=== PATIENT | female | born 1965 | race Caucasian/White ===

== ENCOUNTER 2016-05-23 23:30 | Inpatient (IN) | payer OTHER ==
[~2016-05-23] VITALS: Ht 167.6 cm; Wt 72.0 kg
[2016-05-23 23:32] VITALS: BP 146/71; PULSE 88; RESP 20; TEMP 98.2; O2SAT 98
[2016-05-24] VITALS (8 sets, daily range): BP systolic 118–138; BP diastolic 62–72; PULSE 60–79; RESP 16–20; TEMP 96.7–97.6; O2SAT 96–99
[2016-05-24] MEDS ORDERED: SODIUM CHLOR 0.9% 1000 ML INJ 1,000 ML IV SCH ×2 (01:50→04:03)
--- NOTE | 2016-05-24 01:55 | PD ---
HPI Chief Complaint: Abdominal Pain Time Seen by Provider: 01:39 Travel History International Travel<30 days: No Contact w/Intl Traveler<30days: No Traveled to known affect area: No History of Present Illness HPI The patient is a 50-year-old female who presents to the emergency department for abdominal pain. The patient states she developed abdominal pain on Saturday which is located in epigastrium periumbilical area, radiates to the back into the left shoulder. The pain is associated with nausea and vomiting, initially described as clear now, described as yellow in nature. She states her last bowel movement was on Saturday, denies any diarrhea. The patient does have a history of tubal ligation. The patient is unsure if she has any history of gallstones, pancreatitis, or biliary colic. The patient denies any fever, chills, or sweats. The patient moved from [place] one and a half years ago and does not have a local primary physician. The patient's symptoms are moderate, there are no known alleviating or exacerbating factors. PFSH Past Medical History Medical History: Denies Significant Hx ?: Not LMP: TUBAL Past Surgical History Narrative Surgical Tubal ligation Social History Alcohol Use: Yes (social alcohol) Tobacco Use: No (quit 2015) Substance Use: No Allergies-Medications (Allergen,Severity, Reaction): Coded Allergies: No Known Allergies (Unverified , 05/23/16) Review of Systems Except as stated in HPI: all other systems reviewed are Neg General / Constitutional: No: Fever Cardiovascular: No: Chest Pain or Discomfort Respiratory: No: Shortness of Breath Gastrointestinal: Positive: Nausea, Vomiting, Abdominal Pain, Changes in Bowel Habits, No: Diarrhea Genitourinary: No: Dysuria Musculoskeletal: No: Weakness Physical Exam Narrative GENERAL: Awake, alert, nontoxic-appearing 50-year-old female who appears her stated age and is in no acute respiratory distress. SKIN: Warm and dry. HEAD: Atraumatic. Normocephalic. EYES: Pupils equal and round. No scleral icterus. No injection or drainage. ENT: No nasal bleeding or discharge. Mucous membranes pink and moist. NECK: Trachea midline. No JVD. CARDIOVASCULAR: Regular rate and rhythm. No murmur appreciated. RESPIRATORY: No accessory muscle use. Clear to auscultation. Breath sounds equal bilaterally. GASTROINTESTINAL: Abdomen soft, mildly distended, tender in epigastrium. No rebound tenderness. Mild guarding. No rigidity. MUSCULOSKELETAL: No obvious deformities. No clubbing. No cyanosis. No edema. NEUROLOGICAL: Awake and alert. No obvious cranial nerve deficits. Motor grossly within normal limits. Normal speech. PSYCHIATRIC: Appropriate mood and affect; insight and judgment normal. Data Data Last Documented VS Vital Signs Date Time Temp Pulse Resp B/P Pulse Ox O2 Delivery O2 Flow Rate FiO2 05/24/16 02:09 99 Room Air 05/23/16 23:32 98.2 88 20 146/71 Orders Complete Blood Count With Diff (05/24/16 01:50) Comprehensive Metabolic Panel (05/24/16 01:50) Lipase (05/24/16 01:50) Urinalysis - C+S If Indicated (05/24/16 01:50) Ct Abd/Pel W/O Iv Contrast (05/24/16 01:50) Iv Access Insert/Monitor (05/24/16 01:50) Ecg Monitoring (05/24/16 01:50) Oximetry (05/24/16 01:50) Morphine Inj (Morphine Inj) (05/24/16 02:00) Ondansetron Inj (Zofran Inj) (05/24/16 02:00) Sodium Chlor 0.9% 1000 Ml Inj (Ns 1000 M (05/24/16 01:50) Sodium Chloride 0.9% Flush (Ns Flush) (05/24/16 02:00) Electrocardiogram (05/24/16 01:50) Famotidine Inj (Pepcid Inj) (05/24/16 02:00) Sodium Chlor 0.9% 1000 Ml Inj (Ns 1000 M (05/24/16 03:30) Ciprofloxacin 400 Mg Premix (Cipro 400 M (05/24/16 03:30) Metronidazole 500 Mg Inj (Flagyl 500 Mg (05/24/16 03:30) Marielle-Gastric Tube Insert/Mon (05/24/16 03:40) Consult Colorectal Surgery (05/24/16 ) (Hub Use Only)Inp Phy Cons/Ref (05/24/16 ) Admit To Inpatient (05/24/16 ) Vital Signs (Adult) Q4H (05/24/16 04:03) Activity Oob With Assistance (05/24/16 04:03) ^ Principal Cyber Engineer / Telemetry .CONTINUOUS (05/24/16 04:03) Diet Npo (05/24/16 Breakfast) Sodium Chlor 0.9% 1000 Ml Inj (Ns 1000 M (05/24/16 04:03) Sodium Chloride 0.9% Flush (Ns Flush) (05/24/16 04:15) Sodium Chloride 0.9% Flush (Ns Flush) (05/24/16 09:00) Ondansetron Inj (Zofran Inj) (05/24/16 04:15) Basic Metabolic Panel (Bmp) (05/25/16 06:00) Complete Blood Count With Diff (05/25/16 06:00) Case Management Consult (05/24/16 04:03) Scd Bilateral/Knee High WARREN.BID (05/24/16 04:03) Naloxone Inj (Narcan Inj) (05/24/16 04:15) Inpatient Certification (05/24/16 ) Morphine Inj (Morphine Inj) (05/24/16 04:15) Ciprofloxacin 400 Mg Premix (Cipro 400 M (05/24/16 15:00) Metronidazole 500 Mg Inj (Flagyl 500 Mg (05/24/16 09:00) Admit Order (Ed Use Only) (05/24/16 04:06) Labs Laboratory Tests Test 05/24/16 02:25 White Blood Count 28.0 TH/MM3 Red Blood Count 4.55 MIL/MM3 Hemoglobin 11.8 GM/DL Hematocrit 36.2 % Mean Corpuscular Volume 79.6 FL Mean Corpuscular Hemoglobin 26.0 PG Mean Corpuscular Hemoglobin 32.6 % Concent Red Cell Distribution Width 16.9 % Platelet Count 395 TH/MM3 Mean Platelet Volume 8.9 FL Neutrophils (%) (Auto) 87.4 % Lymphocytes (%) (Auto) 3.8 % Monocytes (%) (Auto) 8.5 % Eosinophils (%) (Auto) 0.0 % Basophils (%) (Auto) 0.3 % Neutrophils # (Auto) 24.5 TH/MM3 Lymphocytes # (Auto) 1.1 TH/MM3 Monocytes # (Auto) 2.4 TH/MM3 Eosinophils # (Auto) 0.0 TH/MM3 Basophils # (Auto) 0.1 TH/MM3 CBC Comment AUTO DIFF Differential Comment AUTO DIFF CONFIRMED Platelet Estimate NORMAL Platelet Morphology Comment NORMAL Red Cell Morphology Comment NORMAL Sodium Level 140 MEQ/L Potassium Level 3.4 MEQ/L Chloride Level 105 MEQ/L Carbon Dioxide Level 24.8 MEQ/L Anion Gap 10 MEQ/L Blood Urea Nitrogen 31 MG/DL Creatinine 0.93 MG/DL Estimat Glomerular Filtration 64 ML/MIN Rate Random Glucose 129 MG/DL Calcium Level 9.9 MG/DL Total Bilirubin 0.5 MG/DL Aspartate Amino Transf 22 U/L (AST/SGOT) Alanine Aminotransferase 28 U/L (ALT/SGPT) Alkaline Phosphatase 87 U/L Total Protein 8.6 GM/DL Albumin 4.4 GM/DL Lipase 141 U/L [facility] Medical Decision Making Medical Screen Exam Complete: Yes Emergency Medical Condition: Yes Medical Record Reviewed: Yes Interpretation(s) EKG reveals normal sinus rhythm with a rate of 73. No ischemic changes or ectopy noted. Laboratory Tests Test 05/24/16 02:25 White Blood Count 28.0 TH/MM3 Red Blood Count 4.55 MIL/MM3 Hemoglobin 11.8 GM/DL Hematocrit 36.2 % Mean Corpuscular Volume 79.6 FL Mean Corpuscular Hemoglobin 26.0 PG Mean Corpuscular Hemoglobin 32.6 % Concent Red Cell Distribution Width 16.9 % Platelet Count 395 TH/MM3 Mean Platelet Volume 8.9 FL Neutrophils (%) (Auto) 87.4 % Lymphocytes (%) (Auto) 3.8 % Monocytes (%) (Auto) 8.5 % Eosinophils (%) (Auto) 0.0 % Basophils (%) (Auto) 0.3 % Neutrophils # (Auto) 24.5 TH/MM3 Lymphocytes # (Auto) 1.1 TH/MM3 Monocytes # (Auto) 2.4 TH/MM3 Eosinophils # (Auto) 0.0 TH/MM3 Basophils # (Auto) 0.1 TH/MM3 CBC Comment AUTO DIFF Differential Comment AUTO DIFF CONFIRMED Platelet Estimate NORMAL Platelet Morphology Comment NORMAL Red Cell Morphology Comment NORMAL Sodium Level 140 MEQ/L Potassium Level 3.4 MEQ/L Chloride Level 105 MEQ/L Carbon Dioxide Level 24.8 MEQ/L Anion Gap 10 MEQ/L Blood Urea Nitrogen 31 MG/DL Creatinine 0.93 MG/DL Estimat Glomerular Filtration 64 ML/MIN Rate Random Glucose 129 MG/DL Calcium Level 9.9 MG/DL Total Bilirubin 0.5 MG/DL Aspartate Amino Transf 22 U/L (AST/SGOT) Alanine Aminotransferase 28 U/L (ALT/SGPT) Alkaline Phosphatase 87 U/L Total Protein 8.6 GM/DL Albumin 4.4 GM/DL Lipase 141 U/L CT of the abdomen and pelvis without contrast reveals massive dilation of the transverse colon. Last Impressions Abdomen/Pelvis CT 05/24/16 0150 Signed Impressions: Service Date/Time: May 02:38 - CONCLUSION: Massive dilation of the transverse colon Florencio Lewis MD Differential Diagnosis Differential diagnosis includes pancreatitis, gastritis, peptic ulcer disease, biliary colic, cholecystitis, small bowel obstruction, nephrolithiasis, pyelonephritis. Narrative Course IV was established, labs are drawn and sent, and the patient was placed on cardiac telemetry monitoring and continuous pulse oximetry monitoring. The patient was administered morphine, Zofran, Pepcid, and IV fluids. UA was sent to lab. CT of the abdomen and pelvis was ordered. The patient's white count was elevated at 28.0. The patient was administered Cipro and Flagyl for possible colitis. CT of the abdomen and pelvis reveals massive dilation of the transverse colon, there is massive air and fluid dilatation of the transverse colon with maximum diameter in excess of 12 cm, the more distal: Is grossly normal in caliber with formed stool. No pneumoperitoneum suspected. I had a discussion with the patient, she has a history of IBS, but denies any history of inflammatory bowel disease or previous colonoscopy. She does have intermittent constipation. As the patient does have a large, massive air-fluid filled dilation of the transverse colon up to 12 cm with a white count of 28, the on-call colorectal surgeon was paged. The on-call colorectal surgeon was Dr. Washburn, I discussed the patient with Dr. Washbunr who recommends NG tube, nothing by mouth, and she will evaluate the patient in the a.m. The patient will be admitted to the medical service. I discussed the patient with Dr. Amador , who agrees with admission. Physician Communication Physician Communication I discussed the patient with Dr. Washburn, colorectal surgery, who recommends admission to the medical service. I discussed the patient with Dr. Amador who agrees with admission. Diagnosis Primary Impression: Obstruction of transverse colon Admitting Information Admitting Physician Requests: Admit Condition: Stable Krunal Putnam MD May 24, 2016 01:55
[2016-05-24] MEDS ORDERED: ONDANSETRON HCL 4 MG/2 ML VIAL IVP ONE (02:00)
[2016-05-24] MEDS ORDERED: SODIUM CHLORIDE 0.9% FLUSH 5 ML FLUSH IVF PRN (02:00)
[2016-05-24] MEDS ORDERED: MORPHINE SULFATE 4 MG/ML INJ IV PUSH ONE (02:00)
[2016-05-24] MEDS ORDERED: FAMOTIDINE 20 MG/2 ML VIAL IV PUSH ONE (02:00)
[2016-05-24 02:53] LABS: AUTOMATED NEUTROPHIL # 24.5 TH/MM3 (1.8-7.7); BASOPHIL # 0.1 TH/MM3 (0-0.2); BASOPHIL % 0.3 % (0.0-2.0); HEMATOCRIT 36.2 % (35.0-46.0); LYMPH % 3.8 % (9.0-44.0); LYMPHOCYTE # 1.1 TH/MM3 (1.0-4.8); MEAN CELL VOLUME 79.6 FL (80.0-100.0); MEAN CORPUSCULAR HGB CONC 32.6 % (32.0-36.0); MONO % 8.5 % (0.0-8.0); NEUT % 87.4 % (16.0-70.0); PLATELET COUNT 395 TH/MM3 (150-450); RED BLOOD COUNT 4.55 MIL/MM3 (4.00-5.30); RED CELL DISTRIBUTION WIDTH 16.9 % (11.6-17.2)
[2016-05-24 02:55] LABS: HEMO FLAGS AUTO DIFF
--- NOTE | 2016-05-24 02:59 | RADRPT ---
EXAM DATE/TIME: 05/24/2016 02:38 [facility] COMPARISON: No previous studies available for comparison. INDICATIONS : Severe abdominal pain since Saturday. ORAL CONTRAST: No oral contrast ingested. RADIATION DOSE: 5.67 CTDIvol (mGy) MEDICAL HISTORY : Inflammatory bowel disease. SURGICAL HISTORY : Tubal ligation. ENCOUNTER: Initial ACUITY: 4 - 6 days PAIN SCALE: 9/10 LOCATION: abdomen TECHNIQUE: Volumetric scanning of the abdomen and pelvis was performed. Using automated exposure control and ad justment of the mA and/or kV according to patient size, radiation dose was kept as low as reasonably achievable to obtain optimal diagnostic quality images. FINDINGS: LOWER LUNGS: Mild right lung base atelectasis. LIVER: Several small low density areas in the liver are likely cysts. No evidence of biliary ductal dilatati on. SPLEEN: Normal size without lesion. PANCREAS: Within normal limits. KIDNEYS: Normal in size and shape. There is no mass, stone, or hydronephrosis. ADRENAL GLANDS: Within normal limits. VASCULAR: There is no aortic aneurysm. BOWEL/MESENTERY: Massive air and fluid dilatation of the transverse colon with maximum diameter in excess of 12 cm. Th e more distal colon is grossly normal in caliber with formed stool. No significant free fluid and no pneumoperitoneum suspected. ABDOMINAL WALL: Within normal limits. RETROPERITONEUM: There is no lymphadenopathy. BLADDER: No wall thickening or mass. REPRODUCTIVE: Within normal limits. INGUINAL: There is no lymphadenopathy or hernia. MUSCULOSKELETAL: Within normal limits for patient age. CONCLUSION: Massive dilation of the transverse colon Florencio Lewis MD on May 24, 2016 at 2:52 Board Certified Radiologist. This report was verified electronically.
[2016-05-24 03:10] LABS: ALT (GPT) 28 U/L (10-53); ANION GAP 10 MEQ/L (5-15); AST (GOT) 22 U/L (15-37); BICARBONATE 24.8 MEQ/L (21.0-32.0); BLOOD UREA NITROGEN 31 MG/DL (7-18); CHLORIDE 105 MEQ/L (98-107); GLOMERULAR FILTRATION RATE 64 ML/MIN (>89); POTASSIUM 3.4 MEQ/L (3.5-5.1); SODIUM (NA) 140 MEQ/L (136-145)
[2016-05-24 03:13] LABS: ALKALINE PHOSPHATASE 87 U/L (45-117); TOTAL BILIRUBIN ADULT 0.5 MG/DL (0.2-1.0)
[2016-05-24 03:20] LABS: PLATELET ESTIMATE SMEAR NORMAL (NORMAL); PLATELET MORPHOLOGY NORMAL (NORMAL); SCAN/DIFF AUTO DIFF CONFIRMED
[2016-05-24] MEDS ORDERED: metroNIDAZOLE 500 MG INJ 100 ML IV ONE (03:30)
[2016-05-24] MEDS ORDERED: SODIUM CHLOR 0.9% 1000 ML INJ 1,000 ML IV ONE (03:30)
[2016-05-24] MEDS ORDERED: CIPROFLOXACIN 400 MG PREMIX 200 ML IV ONE (03:30)
[2016-05-24] MEDS ORDERED: NALOXONE HCL 0.4 MG/ML AMP IV PRN (04:15)
[2016-05-24] MEDS ORDERED: SODIUM CHLORIDE 0.9% FLUSH 5 ML FLUSH FLUSH PRN (04:15)
--- NOTE | 2016-05-24 07:05 | MB ---
cc: EVER FERNANDEZ M.D. DATE OF CONSULTATION 05/24/[address] with abdominal pain, nausea, and vomiting. HISTORY OF PRESENT ILLNESS The patient is a 50-year-old female who came to the emergency department with abdominal pain. She said she began having pain on Saturday which was kind of just in the upper abdomen just to the left of the midline initially, but now has become more diffuse. She did say initially she had some radiation into the shoulder, but that is no longer true. Shortly after beginning to have pain, she began to have nausea and vomiting. She did have a fairly normal bowel movement Saturday, but has had no stool or gas since then. She has no history of diarrhea, constipation, hematuria or melena. She has not had a previous colonoscopy. Family history is negative for colorectal cancer or polyps. PAST MEDICAL HISTORY None PAST SURGICAL HISTORY Tubal ligation ALLERGIES None MEDICATIONS None SOCIAL HISTORY Tobacco, just recently quit. Alcohol, occasional. The patient denies recreational drugs. REVIEW OF SYSTEMS Negative for headache, chest pain, shortness of breath, difficulty with mood or mentation, difficulty with ambulation, dysuria, hematuria. PHYSICAL EXAMINATION Reveals an alert female who appears uncomfortable. NEUROLOGIC: Grossly intact. SKIN: Warm and dry. HEAD: Normocephalic, atraumatic. CARDIOVASCULAR: Regular rate. CHEST: Breathing is symmetric bilaterally and nonlabored. ABDOMEN: Soft. She is moderately distended. She is mildly and diffusely tender. There is no rebound or guarding. EXTREMITIES: Reveal no edema. LABORATORY DATA Laboratory work revealed a white count of 28, hemoglobin of 11.8, hematocrit of 36.2 and platelets of 395. Chemistry reveals a sodium of 140, potassium 3.4, chloride 105, bicarb is 24.8, BUN is 31, creatinine 0.93, glucose is 129. Liver function tests are normal. Urinalysis is not yet complete. CT scan reveals massive dilatation of the transverse colon with no obvious transition point noted. IMPRESSION Dilatation of the transverse colon. It is difficult to know what the cause is. We have placed an NG tube in the patient to decompress her stomach and prevent further distension of the bowel and I will send her for a Gastrografin enema to see if we can elicit the level of the obstruction and/or clear some of the stool and air. Depending on what we find, we may still need to go to the operating room at some point today. MD DAMEON Samano/KIMI /6:47 AM /6:59 AM HIRAL
[2016-05-24] MEDS: MORPHINE SULFATE 4 MG/ML INJ IV PUSH PRN ×5 (07:14→21:05)
[2016-05-24 07:24] LABS: BLOOD, URINE MOD (NEG); GLUCOSE,URINE TRACE mg/dL (NEG); KETONE, URINE TRACE mg/dL (NEG); MUCUS URINE MANY /lpf (OCC); NITRITE,URINE NEG (NEG); URINE COLOR YELLOW (YELLW/STRAW)
[2016-05-24 07:25] LABS: COMMENT (UR) CULT NOT INDICATED; CULTURE IF INDICATED CULT NOT INDICATED
[2016-05-24] MEDS ORDERED: POTASSIUM CHLOR 10 MEQ PREMIX 100 ML IV ONE (07:45)
--- NOTE | 2016-05-24 07:57 | HHI.HP ---
[facility] Primary Care Physician No Primary Care Physician Admission Diagnosis transverse colonic obstruction, leukocytosis Diagnoses: Chief Complaint: Abdominal pain nausea Travel History International Travel<30 Days: No Contact w/Intl Traveler <30 Da: No Traveled to Known Affected Are: No History of Present Illness Patient is a pleasant 50-year-old female with no significant past medical history who since Saturday 4 days prior to admission has been experiencing generalized abdominal pain with spasms, constant unable to hold down any food associated with nausea last bowel movement was Saturday 4 days ago. Her usual bowel movement is like 4-5 times a week. She denies any urinary symptoms finally last night with increasing pain and generalized weakness which prompted consult to ER.. A CT of the abdomen was done which shows transverse colonic obstruction. Patient admitted for further evaluation and management. Review of Systems Constitutional: DENIES: Fever, Weight loss, Chills, Change in appetite Eyes: DENIES: Blurred vision, Double Vision Ears, nose, mouth, throat: DENIES: Tinnitus, Ear Pain, Epistaxis, Odynophagia Respiratory: DENIES: Cough, Hemoptysis, Sputum production, Shortness of breath Cardiovascular: DENIES: Chest pain, Palpitations, Dyspnea on Exertion, Lower Extremity Edema, Orthopnea Gastrointestinal: DENIES: Black stools, Bloody stools, Difficulty Swallowing, Anorexia Genitourinary: DENIES: Urgency, Hematuria, Vaginal discharge Musculoskeletal: DENIES: Joint pain, Stiffness Integumentary: DENIES: Pruritus Hematologic/lymphatic: DENIES: Bruising Immunologic/allergic: DENIES: Urticaria Neurologic: DENIES: Headache, Speech Problems, Tremor Psychiatric: DENIES: Suicidal Ideation, Homicidal Ideation Past Family Social History Past Medical History No significant past medical history Past Surgical History History of tubal ligation. Reported Medications None. Was taking Tylenol when necessary Allergies: Coded Allergies: No Known Allergies (Unverified , 05/23/16) Family History Unremarkable Social History Quit smoking a year ago Occasional wine/record Denies any substance abuse Physical Exam Vital Signs Vital Signs Date Time Temp Pulse Resp B/P Pulse Ox O2 Delivery O2 Flow Rate FiO2 05/24/16 07:01 16 1/19/17 06:58 74 18 118/68 98 05/24/16 04:51 74 18 124/62 99 Room Air 05/24/16 03:30 64 18 126/62 99 Room Air 05/24/16 02:09 99 Room Air 05/23/16 23:32 98.2 88 20 146/71 98 Room Air Physical Exam GENERAL: Awake alert with very dry oral mucosa SKIN: No rashes, ecchymoses or lesions. Cool and dry. HEAD: Atraumatic. Normocephalic. No temporal or scalp tenderness. EYES: Pupils equal round and reactive. Extraocular motions intact. No scleral icterus. No injection or drainage. ENT: Nose without bleeding, . Throat without erythema, tonsillar hypertrophy or exudate. Uvula midline. Airway patent. Dry oral mucosa NECK: Trachea midline. No JVD or lymphadenopathy. Supple, nontender, no meningeal signs. CARDIOVASCULAR: Regular rate and rhythm without murmurs, gallops, or rubs. RESPIRATORY: Clear to auscultation. Breath sounds equal bilaterally. No wheezes , rales, or rhonchi. GASTROINTESTINAL: Abdomen distended, few bowel sounds, diffusely tender on all quadrants. Fascia small supraumbilical hernia MUSCULOSKELETAL: Extremities without clubbing, cyanosis, or edema. No joint tenderness, effusion, or edema noted. No calf tenderness. Negative Homans sign bilaterally. NEUROLOGICAL: Awake and alert. Cranial nerves II through XII intact. Motor and sensory grossly within normal limits. Five out of 5 muscle strength in all muscle groups. Normal speech. Laboratory Laboratory Tests Test 05/24/16 05/24/16 02:25 07:05 White Blood Count 28.0 Red Blood Count 4.55 Hemoglobin 11.8 Hematocrit 36.2 Mean Corpuscular Volume 79.6 Mean Corpuscular Hemoglobin 26.0 Mean Corpuscular Hemoglobin 32.6 Concent Red Cell Distribution Width 16.9 Platelet Count 395 Mean Platelet Volume 8.9 Neutrophils (%) (Auto) 87.4 Lymphocytes (%) (Auto) 3.8 Monocytes (%) (Auto) 8.5 Eosinophils (%) (Auto) 0.0 Basophils (%) (Auto) 0.3 Neutrophils # (Auto) 24.5 Lymphocytes # (Auto) 1.1 Monocytes # (Auto) 2.4 Eosinophils # (Auto) 0.0 Basophils # (Auto) 0.1 CBC Comment AUTO DIFF Differential Comment AUTO DIFF CONFIRMED Platelet Estimate NORMAL Platelet Morphology Comment NORMAL Red Cell Morphology Comment NORMAL Sodium Level 140 Potassium Level 3.4 Chloride Level 105 Carbon Dioxide Level 24.8 Anion Gap 10 Blood Urea Nitrogen 31 Creatinine 0.93 Estimat Glomerular Filtration 64 Rate Random Glucose 129 Calcium Level 9.9 Total Bilirubin 0.5 Aspartate Amino Transf 22 (AST/SGOT) Alanine Aminotransferase 28 (ALT/SGPT) Alkaline Phosphatase 87 Total Protein 8.6 Albumin 4.4 Lipase 141 Urine Color YELLOW Urine Turbidity HAZY Urine pH 6.0 Urine Specific [place] 1.035 Urine Protein 100 Urine Glucose (UA) TRACE Urine Ketones TRACE Urine Occult Blood MOD Urine Nitrite NEG Urine Bilirubin NEG Urine Urobilinogen LESS THAN 2.0 Urine Leukocyte Esterase NEG Urine RBC 125 Urine WBC 5 Urine Mucus MANY Microscopic Urinalysis Comment CULT NOT INDICATED Result Diagram: 05/24/1622405/24/16224 Imaging Last Impressions Abdomen/Pelvis CT 05/24/160 Signed Impressions: Service Date/Time: May 02:38 - CONCLUSION: Massive dilation of the transverse colon Florencio Lewis MD Assessment and Plan Assessment and Plan 50-year-old female presenting with nausea vomiting abdominal pain Acute abdomen with Bowel obstruction CT showing transverse colon obstruction Leukocytosis Patient was promptly seen by Dr. Washburn from colorectal surgery. NG tube to be inserted Patient will be continued IV fluids increase IV fluid rate Started on IV antibiotics Cipro plus Flagyl IV. Recheck CBC in a.m. Acute prerenal azotemia secondary to dehydration Patient received 2 L IV bolus. Will increase IV fluid rate. Recheck BMP in am Hypokalemia. Potassium of 3.4 We'll replace with IV potassium bolus IV fluids with potassium incorporation. Microscopic hematuria urrently on her menstrual cycle PPI for GI prophylaxis Physician Certification 2 Midnight Certification Type: Admission for Inpatient Services Order for Inpatient Services The services are ordered in accordance with Medicare regulations or non- Medicare payer requirements, as applicable. In the case of services not specified as inpatient-only, they are appropriately provided as inpatient services in accordance with the 2-midnight benchmark. Estimated LOS (days): 3 days is the estimated time the patient will need to remain in the hospital, assuming treatment plan goals are met and no additional complications. Post-Hospital Plan: Not yet determined Neo Askew MD May 24, 2016 07:57
[2016-05-24] MEDS: POTASSIUM CHLORIDE INJ 10 MEQ in DEXT 5%-NACL 0.9% 1000 ML INJ 1,000 ML IV SCH ×3 (09:00→21:05)
[2016-05-24] MEDS: SODIUM CHLORIDE 0.9% FLUSH 5 ML FLUSH FLUSH SCH ×2 (09:00→19:47)
[2016-05-24] MEDS: ONDANSETRON HCL 4 MG/2 ML VIAL IVP PRN ×2 (10:15→14:34)
[2016-05-24] MEDS ORDERED: DIATRIZOATE MEGLUM/DIATRIZOATE SOD 120 ML BTL (for RAD DIAG) RECTAL ONE (11:39)
[2016-05-24] MEDS: metroNIDAZOLE 500 MG INJ 100 ML IV SCH ×3 (12:23→19:47)
[2016-05-24] MEDS: PANTOPRAZOLE SODIUM 40 MG VIAL IV PUSH SCH (12:24)
--- NOTE | 2016-05-24 14:19 | RADRPT ---
EXAM DATE/TIME: 05/24/2016 10:48 [facility] COMPARISON: CT ABDOMEN & PELVIS W/O CONTRAST, May 24, 2016, 2:38. INDICATIONS : Constipation, abdominal and back pain for 5 days, nausea, abdominal distension FLUORO TIME: 3.7 minutes IMAGE COUNT: 21 CONTRAST: 1. [facility] MEDICAL HISTORY : constipation SURGICAL HISTORY : Tubal ligation. ENCOUNTER: Initial ACUITY: 4 - 6 days PAIN SCORE: 10/10 LOCATION: Bilateral abdomen FINDINGS: The preliminary data integrity analyst film demonstrates a nasogastric tube in place with the tip projected over the m id to distal stomach. There is an abnormal bowel gas pattern with moderate amount of stool throughout the colon. There is a large dilated air containing structure in the upper abdomen measuring up to ap proximately 16 cm in greatest transverse diameter. There is no free air. Under fluoroscopic guidance a Gastrografin enema was performed with free flow of contrast to the ceca l tip. A large amount of stool throughout the colon. A large air-containing structure did not fill wi th contrast and is consistent with a markedly dilated stomach. No focal abnormalities identified in t he colon however this is a single contrast study with a large amount of stool which limits the sensit ivity. CONCLUSION: Large dilated air containing structure consistent with the stomach. A nasogastric tub e is present. There is a large amount of stool throughout the colon with no distinct focal abnormalit y. Francesco Stanton MD on May 24, 2016 at 14:09 Board Certified Radiologist. This report was verified electronically.
[2016-05-24] MEDS: CIPROFLOXACIN 400 MG PREMIX 200 ML IV SCH (14:34)
--- NOTE | 2016-05-24 20:58 | EKG ---
Date Performed: 05/24/2016 Time Performed: 03:10:01 PTAGE: 50 years EKG: Sinus rhythm NORMAL ECG NO PREVIOUS TRACING DOCTOR: Omari Hernandez Interpretating Date/Time 05/24/2016 20:55:56
[2016-05-25] VITALS: BP 130/60; PULSE 75; RESP 18; TEMP 97.6; O2SAT 95
[2016-05-25] MEDS: metroNIDAZOLE 500 MG INJ 100 ML IV SCH ×4 (00:41→20:26)
[2016-05-25] MEDS: CIPROFLOXACIN 400 MG PREMIX 200 ML IV SCH ×2 (00:41→14:45)
[2016-05-25 05:26] LABS: AUTOMATED NEUTROPHIL # 14.1 TH/MM3 (1.8-7.7); BASOPHIL % 0.1 % (0.0-2.0); EOSINOPHIL % 0.1 % (0.0-4.0); HEMATOCRIT 29.5 % (35.0-46.0); HEMO FLAGS DIFF FINAL; LYMPHOCYTE # 1.2 TH/MM3 (1.0-4.8); MEAN CELL VOLUME 78.9 FL (80.0-100.0); MEAN CORPUSCULAR HEMOGLOBIN 25.3 PG (27.0-34.0); MEAN CORPUSCULAR HGB CONC 32.1 % (32.0-36.0); MONO % 9.5 % (0.0-8.0); NEUT % 83.3 % (16.0-70.0); PLATELET COUNT 311 TH/MM3 (150-450); RED BLOOD COUNT 3.74 MIL/MM3 (4.00-5.30); RED CELL DISTRIBUTION WIDTH 16.6 % (11.6-17.2)
[2016-05-25 05:51] LABS: BICARBONATE 27.4 MEQ/L (21.0-32.0); POTASSIUM 3.5 MEQ/L (3.5-5.1)
--- NOTE | 2016-05-25 06:33 | HHI.PR ---
Subjective Remarks Dilated stomach more comfortable, still with slight bloating NGT miserable Objective Vital Signs Date Time Temp Pulse Resp B/P Pulse Ox O2 Delivery O2 Flow Rate FiO2 05/25/16 00:00 97.6 75 18 130/60 95 05/24/16 20:00 97.6 79 18 137/63 96 05/24/16 17:31 96.7 75 20 136/64 97 05/24/16 14:09 97.4 74 20 137/72 98 05/24/16 09:58 60 16 138/65 99 05/24/16 07:01 16 05/24/16 06:58 74 18 118/68 98 I/O 05/24/16 05/24/16 05/24/16 05/25/16 05/25/16 05/25/16 07:00 15:00 23:00 07:00 15:00 23:00 Intake Total 1064 ml 751 ml Output Total 300 ml 701 ml Balance 764 ml 50 ml Intake Oral 0 ml 0 ml IV Total 1064 ml 751 ml Output Urine Total 300 ml 601 ml Gastric Drainage Total 100 ml # Bowel Movements 1 4 # Sanitary Pads 2 Pads Result Diagram: 05/25/16 0401 05/25/16 0401 Objective Remarks Abdomen soft, nontender, mildly distended Assessment and Plan Assessment and Plan Gastrografin enema yesterday revealed that distension was in stomach, not colon Recheck xray this am Defer to [employer] Machinist Belia Washburn MD May 25, 2016 06:32
[2016-05-25 08:00] VITALS: BP 120/60; PULSE 74; RESP 17; TEMP 98.4; O2SAT 97
--- NOTE | 2016-05-25 08:36 | RADRPT ---
EXAM DATE/TIME: 05/25/2016 08:10 [facility] COMPARISON: CT ABDOMEN & PELVIS W/O CONTRAST, May 24, 2016, 2:38. INDICATIONS : Abdominal pain, nausea. MEDICAL HISTORY : None. SURGICAL HISTORY : Tubal ligation. ENCOUNTER: Subsequent ACUITY: 2 days PAIN SCORE: 8/10 LOCATION: Bilateral abdomen FINDINGS: The bowel gas pattern appears normal. No free air is identified. No organomegaly is evident. There is contrast throughout the colon which demonstrates severe distention of the transverse colon. The find ings are similar to the prior exam. A nasogastric tube is in place with its tip in the stomach. Chron ic calcific pancreatitis is present. CONCLUSION: Continued marked distention of the transverse colon. The findings are similar to the prior exam. Emil Lewis MD on May 25, 2016 at 8:31 Board Certified Radiologist. This report was verified electronically.
[2016-05-25] MEDS: PANTOPRAZOLE SODIUM 40 MG VIAL IV PUSH SCH (08:46)
[2016-05-25] MEDS: SODIUM CHLORIDE 0.9% FLUSH 5 ML FLUSH FLUSH SCH ×2 (08:46→20:26)
--- NOTE | 2016-05-25 09:36 | PD.CONS ---
HPI History of Present Illness This is a 50 year old with out any significant past medical history who is here for evaluation of acute onset of abdominal pain, associated with bloating, nausea, vomiting, and constipation since Saturday 4 days prior to admission. Patient hasn't been able to hold down any PO intake including water. The emesis is water and food at first then turns into bile. The pain is diffused with severe discomfort. laying on her right side gives her some relief. She reports unusual bloating for the past 2 months that she didn't think much of but this progressively got worse. She reports constipation, last time she moved her bowel was Saturday and that was very small, her usual bowel movement is 4-5 times a week. She denies hematemesis, hematochezia, fever, or chills, she is however on her menstrual period. No previous history of this. She reports history of IBS , but nothing like this episode. A CT of the abdomen was done which shows massive dilation of the transverse colon. Dr. stark was consulted and who in turn ordered Barium enema which showed Large dilated air containing structure consistent with the stomach. A nasogastric tube is present. There is a large amount of stool throughout the colon with no distinct focal abnormality and that prompted GI consult. KUB this morning Continued marked distention of the transverse colon. The findings are similar to the prior exam. Labs are significant for leukocytosis, this was 28 on admission ----> 17.0 today. She is anemic today, hgb 11.8---> 9.5. She never had GI work up in the past. Currently patient with NGT to [facility]. Patient has been having liquid BM since the barium enema. (Emerita Myers) PFSH Past Medical History No significant past medical history Past Surgical History History of tubal ligation. (Emerita Myers) Coded Allergies: No Known Allergies (Unverified , 05/23/16) Medications Current Medications Medications (Trade) Dose Ordered Sig/Lolis Route Start Time Stop Time Status Last Admin (NS Flush) 2 ml UNSCH PRN FLUSH 05/24/16 04:15 (NS Flush) 2 ml BID FLUSH 05/24/16 09:00 05/25/16 08:46 (Zofran Inj) 4 mg Q6H PRN IVP 05/24/16 04:15 05/24/16 14:34 (Narcan Inj) 0.4 mg UNSCH PRN IV 05/24/16 04:15 Morphine Sulfate 2 mg 2 mg Q3H PRN IV PUSH 05/24/16 04:15 05/24/16 21:05 Ciprofloxacin/ Dextrose 200 ml @ 200 mls/hr Q12H IV 05/24/16 15:00 05/25/16 00:41 Metronidazole 100 ml @ 100 mls/hr Q6H IV 05/24/16 09:00 05/25/16 08:47 (KCl Inj/D5W-NS 1000 ml Inj) 1,005 ml @ 125 mls/hr Q8H3M IV 05/24/16 09:00 05/24/16 21:05 (Protonix Inj) 40 mg Q24H IV PUSH 05/24/16 09:00 05/25/16 08:46 Family History No family history of gastric or colon cancer Social History Quit smoking a year ago Occasional wine Denies any substance abuse (Emerita Myers) Review of Systems Constitutional: DENIES: Fever, Chills Endocrine: DENIES: Polyuria Eyes: DENIES: Double Vision Ears, nose, mouth, throat: DENIES: Hoarseness Respiratory: DENIES: Shortness of breath Cardiovascular: DENIES: Lower Extremity Edema Gastrointestinal: COMPLAINS OF: Abdominal pain, Constipation, Nausea, Vomiting , Anorexia, Swelling of Abdomen, DENIES: Black stools, Bloody stools, Diarrhea , Difficulty Swallowing, Odynophagia, Heartburn, Hematemesis Genitourinary: DENIES: Hematuria Musculoskeletal: DENIES: Neck pain Integumentary: DENIES: Jaundice Hematologic/lymphatic: DENIES: Bruising Immunologic/allergic: DENIES: Eczema Neurologic: DENIES: Abnormal gait Psychiatric: DENIES: Anxiety (Emerita Myers) GI Exam Vitals I&O Vital Signs Date Time Temp Pulse Resp B/P Pulse Ox O2 Delivery O2 Flow Rate FiO2 05/25/16 08:00 98.4 74 17 120/60 97 05/25/16 00:00 97.6 75 18 130/60 95 05/24/16 20:00 97.6 79 18 137/63 96 05/24/16 17:31 96.7 75 20 136/64 97 05/24/16 14:09 97.4 74 20 137/72 98 05/24/16 09:58 60 16 138/65 99 I/O 05/24/16 05/24/16 05/24/16 05/25/16 05/25/16 05/25/16 07:00 15:00 23:00 07:00 15:00 23:00 Intake Total 1064 ml 751 ml Output Total 300 ml 701 ml Balance 764 ml 50 ml Intake Oral 0 ml 0 ml IV Total 1064 ml 751 ml Output Urine Total 300 ml 601 ml Gastric Drainage Total 100 ml # Bowel Movements 1 4 # Sanitary Pads 2 Pads Imaging Last Impressions Abdomen X-Ray 05/25/16 0000 Signed Impressions: Service Date/Time: Wednesday, May 25, 2016 08:10 - CONCLUSION: Continued marked distention of the transverse colon. The findings are similar to the prior exam. Emil Lewis MD Abdomen/Pelvis CT 05/24/16 0150 Signed Impressions: Service Date/Time: May 02:38 - CONCLUSION: Massive dilation of the transverse colon Florencio Lewis MD Enema w/Water Soluble 05/24/16 0000 Signed Impressions: Service Date/Time: May 10:48 - CONCLUSION: Large dilated air containing structure consistent with the stomach. A nasogastric tube is present. There is a large amount of stool throughout the colon with no distinct focal abnormality. Francesco Stanton MD Laboratory Test 05/25/16 04:01 White Blood Count 17.0 TH/MM3 Red Blood Count 3.74 MIL/MM3 Hemoglobin 9.5 GM/DL Hematocrit 29.5 % Mean Corpuscular Volume 78.9 FL Mean Corpuscular Hemoglobin 25.3 PG Mean Corpuscular Hemoglobin 32.1 % Concent Red Cell Distribution Width 16.6 % Platelet Count 311 TH/MM3 Mean Platelet Volume 8.5 FL Neutrophils (%) (Auto) 83.3 % Lymphocytes (%) (Auto) 7.0 % Monocytes (%) (Auto) 9.5 % Eosinophils (%) (Auto) 0.1 % Basophils (%) (Auto) 0.1 % Neutrophils # (Auto) 14.1 TH/MM3 Lymphocytes # (Auto) 1.2 TH/MM3 Monocytes # (Auto) 1.6 TH/MM3 Eosinophils # (Auto) 0.0 TH/MM3 Basophils # (Auto) 0.0 TH/MM3 CBC Comment DIFF FINAL Differential Comment Sodium Level 146 MEQ/L Potassium Level 3.5 MEQ/L Chloride Level 112 MEQ/L Carbon Dioxide Level 27.4 MEQ/L Anion Gap 7 MEQ/L Blood Urea Nitrogen 18 MG/DL Creatinine 0.58 MG/DL Estimat Glomerular Filtration 110 ML/MIN Rate Random Glucose 115 MG/DL Calcium Level 8.3 MG/DL Physical Examination HEENT: normocephalic; atraumatic; no jaundice. Throat is clear. NECK: Neck is supple, no JVD, no lymphadenopathy. CHEST: Chest is clear to auscultation and percussion. CARDIAC: Regular rate and rhythm with no murmur gallop or rubs. ABDOMEN: Soft, slightly distended, diffused tenderness ; no hepatosplenomegaly ; bowel sounds are present in all four quadrants. EXTREMITIES: No clubbing, cyanosis, or edema. SKIN: Normal; no rash; no jaundice. [employer]: No focal deficits; alert and oriented times three. (Emerita MyersP) Assessment and Plan Plan - Dilatation of the transverse colon- unclear etiology- Patient with bloating, diffused abd pain, associated with bloating, nausea, vomiting and constipation for the past 4 days NGT to [facility]. Patient has been having liquid BM since the barium enema A CT of the abdomen was done which shows massive dilation of the transverse colon. Dr. stark was consulted and who in turn ordered Barium enema which showed Large dilated air containing structure consistent with the stomach. A nasogastric tube is present. There is a large amount of stool throughout the colon with no distinct focal abnormality and that prompted GI consult. KUB this morning Continued marked distention of the transverse colon. The findings are similar to the prior exam. Labs are significant for leukocytosis, this was 28 on admission ----> 17.0 today. She is anemic today, hgb 11.8---> 9.5. She never had GI work up in the past - ? gastric outlet obstruction on imaging- Upper GI with Gastrografin - leukocytosis, this was 28 on admission ----> 17.0 today. A febrile, abx - Anemia- hgb 11.8---> 9.5. She is on her menstrual cycle - Electrolyte abnormalities due to dehydration per attending Plan: - NPO - Cont. NGT to LIWS - Patient can have Ice chips - IV fluids - Upper GI and pending results, patient might need EGD - KUB showed contrast throughout colon , will give Mag citrate - KUB in am - Monitor labs - Supportive care - Patient seen and examined by Dr. Vital and myself and this note is written on his behalf. (Emerita Myers) Physician Comments Seen and examined with Ms. Louis KHAN, second episode of abdominal distension and pain. Imaging studies suggest Gastric oultet obstruction. Gastrograffin ugi ordered. Possible egd. Keep NG to LIS. NPO with IVF. Thank u (Val Vital MD ) Emerita Myers May 25, 2016 09:36 Val Vital MD May 25, 2016 17:55
[2016-05-25] MEDS ORDERED: MAGNESIUM CITRATE SOLN 300 ML BTL PO ONE (10:00)
[2016-05-25] MEDS: POTASSIUM CHLORIDE INJ 10 MEQ in DEXT 5%-NACL 0.9% 1000 ML INJ 1,000 ML IV SCH ×3 (10:15→20:26)
--- NOTE | 2016-05-25 11:43 | HHI.PR ---
Subjective Remarks patient currently on her menstrual cycle abdomen feels better, softer + stools, NT drained about 200 cc since yesterday Objective Vitals Vital Signs Date Time Temp Pulse Resp B/P Pulse Ox O2 Delivery O2 Flow Rate FiO2 05/25/16 08:00 98.4 74 17 120/60 97 05/25/16 00:00 97.6 75 18 130/60 95 05/24/16 20:00 97.6 79 18 137/63 96 05/24/16 17:31 96.7 75 20 136/64 97 05/24/16 14:09 97.4 74 20 137/72 98 I/O 05/24/16 05/24/16 05/24/16 05/25/16 05/25/16 05/25/16 07:00 15:00 23:00 07:00 15:00 23:00 Intake Total 1064 ml 751 ml Output Total 300 ml 701 ml Balance 764 ml 50 ml Intake Oral 0 ml 0 ml IV Total 1064 ml 751 ml Output Urine Total 300 ml 601 ml Gastric Drainage Total 100 ml # Bowel Movements 1 4 # Sanitary Pads 2 Pads Result Diagram: 05/25/16 0401 05/25/16 0401 Imaging Last Impressions Abdomen X-Ray 05/25/16 0000 Signed Impressions: Service Date/Time: Wednesday, May 25, 2016 08:10 - CONCLUSION: Continued marked distention of the transverse colon. The findings are similar to the prior exam. Emil Lewis MD Abdomen/Pelvis CT 05/24/16 0150 Signed Impressions: Service Date/Time: May 02:38 - CONCLUSION: Massive dilation of the transverse colon Florencio Lewis MD Enema w/Water Soluble 05/24/16 0000 Signed Impressions: Service Date/Time: May 10:48 - CONCLUSION: Large dilated air containing structure consistent with the stomach. A nasogastric tube is present. There is a large amount of stool throughout the colon with no distinct focal abnormality. Francesco Stanton MD Objective Remarks GENERAL: alert SKIN: Warm and dry. HEAD: Normocephalic. EYES: No scleral icterus. No injection or drainage. NECK: Supple, trachea midline. No JVD or lymphadenopathy. CARDIOVASCULAR: Regular rate and rhythm without murmurs, gallops, or rubs. RESPIRATORY: Breath sounds equal bilaterally. No accessory muscle use. GASTROINTESTINAL: Abdomen less distended , softer, positive bowel sounds MUSCULOSKELETAL: No cyanosis, or edema. BACK: Nontender without obvious deformity. No CVA tenderness. A/P Assessment and Plan 50-year-old female presenting with nausea vomiting abdominal pain Acute Abdomen - Bowel obstruction Leukocytosis GI and CRS ff keep NGT Patient will be continued IV fluids increase IV fluid rate on IV antibiotics Cipro plus Flagyl IV. Recheck CBC in a.m. Acute prerenal azotemia secondary to dehydration continue IVF Hypokalemia. recheck today. IVF with KCL PPI for GI prophylaxis Increase activity. Neo Askew MD May 25, 2016 11:43
[2016-05-25 12:00] VITALS: BP 134/61; PULSE 79; RESP 17; TEMP 98.7; O2SAT 97
[2016-05-25] MEDS: MORPHINE SULFATE 4 MG/ML INJ IV PUSH PRN ×2 (14:43→18:02)
[2016-05-25 16:00] VITALS: BP 133/61; PULSE 78; RESP 17; TEMP 97.4; O2SAT 96
[2016-05-25] MEDS: ONDANSETRON HCL 4 MG/2 ML VIAL IVP PRN (18:01)
[2016-05-25 20:00] VITALS: BP 165/91; PULSE 94; RESP 18; TEMP 97; O2SAT 92
[2016-05-25] MEDS ORDERED: HYDROmorphone HCL PF 1 MG/ML VIAL IV PUSH PRN (20:00)
[2016-05-25] MEDS: HYDROmorphone HCL PF 1 MG/ML VIAL IV PUSH PRN (20:26)
[2016-05-25 23:31] VITALS: PULSE 79
[2016-05-26] VITALS (7 sets, daily range): BP systolic 124–143; BP diastolic 56–65; PULSE 80–94; RESP 16–18; TEMP 96–99; O2SAT 94–95
[2016-05-26] MEDS: ONDANSETRON HCL 4 MG/2 ML VIAL IVP PRN (00:10)
[2016-05-26] MEDS: HYDROmorphone HCL PF 1 MG/ML VIAL IV PUSH PRN ×6 (00:11→20:57)
[2016-05-26] MEDS: metroNIDAZOLE 500 MG INJ 100 ML IV SCH ×4 (03:37→22:59)
[2016-05-26] MEDS: CIPROFLOXACIN 400 MG PREMIX 200 ML IV SCH ×2 (03:37→16:59)
--- NOTE | 2016-05-26 07:41 | HHI.PR ---
Subjective Remarks Dilated stomach still with pain Objective Vital Signs Date Time Temp Pulse Resp B/P Pulse Ox O2 Delivery O2 Flow Rate FiO2 05/26/16 04:00 97.3 87 18 130/63 95 05/26/16 00:00 96.0 80 16 129/59 95 05/25/16 23:31 79 05/25/16 20:00 97.0 94 18 165/91 92 05/25/16 16:00 97.4 78 17 133/61 96 05/25/16 12:00 98.7 79 17 134/61 97 05/25/16 08:00 98.4 74 17 120/60 97 I/O 05/25/16 05/25/16 05/25/16 05/26/16 05/26/16 05/26/16 07:00 15:00 23:00 07:00 15:00 23:00 Intake Total 751 ml 1186 ml 1138 ml 1184 ml Output Total 701 ml 500 ml 800 ml 600 ml Balance 50 ml 686 ml 338 ml 584 ml Intake Oral 0 ml 40 ml 60 ml IV Total 751 ml 1186 ml 1098 ml 1124 ml Output Urine Total 601 ml 300 ml 300 ml Gastric Drainage Total 100 ml 500 ml 500 ml 300 ml # Bowel Movements 4 0 0 # Sanitary Pads 1 Pads 2 Pads Result Diagram: 05/25/16 0401 05/25/16 0401 Objective Remarks Abdomen soft, mildly tender mildly distended Assessment and Plan Assessment and Plan Discussed with Radiologist extensively yesterday and reviewed all films The colon has no abnormalities, the dilation is in the stomach Not sure if Dr. Vital saw addendum to Radiology report Belia Washburn MD May 26, 2016 07:41
[2016-05-26] MEDS: SODIUM CHLORIDE 0.9% FLUSH 5 ML FLUSH FLUSH SCH ×2 (08:40→19:39)
[2016-05-26] MEDS: PANTOPRAZOLE SODIUM 40 MG VIAL IV PUSH SCH (08:41)
[2016-05-26] MEDS: POTASSIUM CHLORIDE INJ 10 MEQ in DEXT 5%-NACL 0.9% 1000 ML INJ 1,000 ML IV SCH ×2 (08:42→16:59)
--- NOTE | 2016-05-26 09:55 | HHI.PR ---
Subjective Remarks abdomen- softer, less distended but quiller tender - NGT draining - about 1 L last 24 hour no nausea or vomiting with NGT in place Objective Vitals Vital Signs Date Time Temp Pulse Resp B/P Pulse Ox O2 Delivery O2 Flow Rate FiO2 05/26/16 08:00 97.2 82 17 130/62 95 05/26/16 04:00 97.3 87 18 130/63 95 05/26/16 00:00 96.0 80 16 129/59 95 05/25/16 23:31 79 05/25/16 20:00 97.0 94 18 165/91 92 05/25/16 16:00 97.4 78 17 133/61 96 05/25/16 12:00 98.7 79 17 134/61 97 I/O 05/25/16 05/25/16 05/25/16 05/26/16 05/26/16 05/26/16 07:00 15:00 23:00 07:00 15:00 23:00 Intake Total 751 ml 1186 ml 1138 ml 1184 ml Output Total 701 ml 500 ml 800 ml 600 ml Balance 50 ml 686 ml 338 ml 584 ml Intake Oral 0 ml 40 ml 60 ml IV Total 751 ml 1186 ml 1098 ml 1124 ml Output Urine Total 601 ml 300 ml 300 ml Gastric Drainage Total 100 ml 500 ml 500 ml 300 ml # Bowel Movements 4 0 0 # Sanitary Pads 1 Pads 2 Pads Result Diagram: 05/25/16 0401 05/25/16 0401 Imaging Last Impressions Abdomen X-Ray 05/25/16 0000 Signed Impressions: Service Date/Time: Wednesday, May 25, 2016 08:10 - CONCLUSION: Continued marked distention of the transverse colon. The findings are similar to the prior exam. Emil Lewis MD Abdomen/Pelvis CT 05/24/16 0150 Signed Impressions: Service Date/Time: May 02:38 - CONCLUSION: Massive dilation of the transverse colon Florencio Lewis MD Enema w/Water Soluble 05/24/16 0000 Signed Impressions: Service Date/Time: May 10:48 - CONCLUSION: Large dilated air containing structure consistent with the stomach. A nasogastric tube is present. There is a large amount of stool throughout the colon with no distinct focal abnormality. Francesco Stanton MD Objective Remarks GENERAL: alert SKIN: Warm and dry. HEAD: Normocephalic. EYES: No scleral icterus. No injection or drainage. NECK: Supple, trachea midline. No JVD or lymphadenopathy. CARDIOVASCULAR: Regular rate and rhythm without murmurs, gallops, or rubs. RESPIRATORY: Breath sounds equal bilaterally. No accessory muscle use. GASTROINTESTINAL: Abdomen distended but less compared to yesterday, softer, positive bowel sounds, + diffuse tenderness MUSCULOSKELETAL: No cyanosis, or edema. BACK: Nontender without obvious deformity. No CVA tenderness. A/P Assessment and Plan 50-year-old female presenting with nausea vomiting abdominal pain Acute Abdomen - colonic obstruction- Leukocytosis- trending down GI and CRS ff- closely along with us keep NGT. continue IVF 125 cc/hr for UGIS - pending Patient will be continued IV fluids. increase IV fluid rate on IV antibiotics Cipro plus Flagyl IV. Recheck CBC , BMP Acute prerenal azotemia secondary to dehydration continue IVF Hypokalemia. improved IVF with KCL. recheck today Microscopic hematuria currently on her menstrual cycle PPI for GI prophylaxis Increase activity. Lovenox for DVT prophylaxis d/w Dr. Vital= GI Neo Askew MD May 26, 2016 09:55
[2016-05-26] MEDS ORDERED: DIATRIZOATE MEGLUM/DIATRIZOATE SOD 120 ML BTL (for RAD DIAG) NG ONE (11:23)
--- NOTE | 2016-05-26 12:54 | RADRPT ---
EXAM DATE/TIME: 05/26/2016 10:30 This report includes an Addendum and supersedes previous reports for this exam. [facility] COMPARISON: GASTROGRAFIN ENEMA, May 24, 2016, 10:48. CT ABDOMEN & PELVIS W/O CONTRAST, May 24, 2016, 2:3 8. INDICATIONS : Abdominal distention. FLUORO TIME: 1.9 minutes IMAGE COUNT: 6 CONTRAST: 1. MD Goodman MEDICAL HISTORY : None. SURGICAL HISTORY : Tubal Ligation. ENCOUNTER: Initial ACUITY: 1 day PAIN SCORE: 0/10 LOCATION: Abdomen FINDINGS: Gastroview contrast was injected into an artery indwelling nasogastric tube. Contrast opacifies the s tomach which is externally compressed secondary to a dilated air-filled loop of colon. Contrast flows easily through the duodenum into the proximal small bowel. The There is a persistent abnormally dilated segment of bowel in the superior abdomen that appears to hav e haustral pattern consistent with colon. After review of the prior imaging studies the abnormal nicolas l appears to represent colon and imaging findings are suspicious for displaced colon, likely the cecu m. CONCLUSION: 1. Contrast fills a normal-appearing but externally compressed stomach. Gastric emptying is normal. 2. [place] Former view demonstrates a dilated segment of colon in the superior abdomen. Based on all of the im aging findings the appearance is very suspicious for cecal volvulus or less likely cecal bascule. Florencio Roman MD on May 26, 2016 at 12:41 Board Certified Radiologist. This report was verified electronically. ADDENDUM: The above findings were relayed to Dr. Vital via telephone at 1:15 PM. I informed him that the fin dings were suspicious for cecal volvulus. Florencio Roman MD on May 26, 2016 at 13:17 Board Certified Radiologist. This report was verified electronically.
--- NOTE | 2016-05-26 13:57 | RADRPT ---
EXAM DATE/TIME: 05/26/2016 10:33 [facility] COMPARISON: GASTROGRAFIN GI SERIES, May 26, 2016, 10:30. GASTROGRAFIN ENEMA, May 24, 2016, 10:48. CT AB DOMEN & PELVIS W/O CONTRAST, May 24, 2016, 2:38. ABDOMEN KUB ONLY, May 25, 2016, 8:10. INDICATIONS : Abdominal distention. MEDICAL HISTORY : None. SURGICAL HISTORY : Tubal ligation. ENCOUNTER: Initial ACUITY: 3 days PAIN SCORE: 0/10 LOCATION: Abdomen FINDINGS: 2 supine frontal views of the abdomen demonstrate nasogastric tube tip in the distal stomach. There i s a persistent abnormally dilated segment of bowel in the upper abdomen extending to the left upper q uadrant. It has haustral folds indicating that it is colon. There is contrast material within the mor e distal colon and potentially the small bowel related to recent upper GI exam. CONCLUSION: Persistent abnormal dilatation of the colon in the upper abdomen extending to the left upper quadrant . Based on review of all the prior imaging studies the appearance is suspicious for cecal volvulus or less likely a cecal bascule. Florencio Roman MD on May 26, 2016 at 13:53 Board Certified Radiologist. This report was verified electronically.
[2016-05-26 16:22] LABS: AUTOMATED NEUTROPHIL # 12.1 TH/MM3 (1.8-7.7); BASOPHIL % 0.2 % (0.0-2.0); EOSINOPHIL # 0.1 TH/MM3 (0-0.4); EOSINOPHIL % 0.9 % (0.0-4.0); HEMATOCRIT 33.4 % (35.0-46.0); HEMO FLAGS DIFF FINAL; LYMPH % 8.4 % (9.0-44.0); LYMPHOCYTE # 1.2 TH/MM3 (1.0-4.8); MEAN CELL VOLUME 79.2 FL (80.0-100.0); MEAN CORPUSCULAR HEMOGLOBIN 25.4 PG (27.0-34.0); MEAN CORPUSCULAR HGB CONC 32.1 % (32.0-36.0); MONO % 6.7 % (0.0-8.0); NEUT % 83.8 % (16.0-70.0); PLATELET COUNT 342 TH/MM3 (150-450); RED BLOOD COUNT 4.21 MIL/MM3 (4.00-5.30); RED CELL DISTRIBUTION WIDTH 16.5 % (11.6-17.2); WHITE BLOOD COUNT 14.4 TH/MM3 (4.0-11.0)
[2016-05-26 16:49] LABS: BICARBONATE 30.3 MEQ/L (21.0-32.0)
[2016-05-26] MEDS: POTASSIUM CHLOR 10 MEQ PREMIX 100 ML IV SCH ×4 (18:32→21:58)
[2016-05-26] MEDS: D5-NS + KCL 20 MEQ INJ 1,000 ML IV SCH (18:32)
[2016-05-27] VITALS (8 sets, daily range): BP systolic 94–132; BP diastolic 50–68; PULSE 78–97; RESP 16–20; TEMP 95.7–99; O2SAT 93–97
[2016-05-27] MEDS: HYDROmorphone HCL PF 1 MG/ML VIAL IV PUSH PRN ×3 (01:09→09:04)
[2016-05-27] MEDS: CIPROFLOXACIN 400 MG PREMIX 200 ML IV SCH ×2 (03:00→15:27)
[2016-05-27 04:54] LABS: BICARBONATE 25.9 MEQ/L (21.0-32.0); POTASSIUM 3.5 MEQ/L (3.5-5.1)
[2016-05-27] MEDS: D5-NS + KCL 20 MEQ INJ 1,000 ML IV SCH ×2 (05:01→18:10)
[2016-05-27] MEDS: metroNIDAZOLE 500 MG INJ 100 ML IV SCH ×4 (05:02→22:49)
[2016-05-27] MEDS: SODIUM CHLORIDE 0.9% FLUSH 5 ML FLUSH FLUSH SCH (07:24)
[2016-05-27] MEDS ORDERED: POTASSIUM CHLOR 20 MEQ PREMIX 100 ML IV ONE (08:00)
--- NOTE | 2016-05-27 08:05 | HHI.PR ---
Subjective Remarks still with abdominal pain . NGT draining about 500 cc last 8 hours shift- milky whitish fluid no nausea or vomiting- with NGT in place no flatus, no BM Objective Vitals Vital Signs Date Time Temp Pulse Resp B/P Pulse Ox O2 Delivery O2 Flow Rate FiO2 05/27/16 00:00 96.7 92 16 126/58 95 05/26/16 21:27 18 05/26/16 20:06 89 05/26/16 20:00 98.6 94 18 124/56 94 05/26/16 16:00 99.0 92 17 128/62 94 05/26/16 12:00 98.4 80 17 143/65 95 I/O 05/26/16 05/26/16 05/26/16 05/27/16 05/27/16 05/27/16 07:00 15:00 23:00 07:00 15:00 23:00 Intake Total 1184 ml 1889 ml 322 ml 1239 ml Output Total 600 ml 1500 ml 430 ml 800 ml Balance 584 ml 389 ml -108 ml 439 ml Intake Oral 60 ml 800 ml IV Total 1124 ml 1089 ml 322 ml 1239 ml Output Urine Total 300 ml 800 ml 400 ml 300 ml Gastric Drainage Total 300 ml 700 ml 30 ml 500 ml # Bowel Movements 0 0 0 0 Result Diagram: 05/26/16 1520 05/27/16 0344 Imaging Last Impressions Upper GI Series 05/26/16 0000 Signed Impressions: Service Date/Time: Thursday, May 26, 2016 10:30 - CONCLUSION: 1. Contrast fills a normal-appearing but externally compressed stomach. Gastric emptying is normal. 2. Air And Water Filler view demonstrates a dilated segment of colon in the superior abdomen. Based on all of the imaging findings the appearance is very suspicious for cecal volvulus or less likely cecal bascule. Florencio Roman MD ADDENDUM: The above findings were relayed to Dr. Vital via telephone at 1:15 PM. I informed him that the findings were suspicious for cecal volvulus. Florencio Roman MD Abdomen X-Ray 05/26/16 0000 Signed Impressions: Service Date/Time: Thursday, May 26, 2016 10:33 - CONCLUSION: Persistent abnormal dilatation of the colon in the upper abdomen extending to the left upper quadrant. Based on review of all the prior imaging studies the appearance is suspicious for cecal volvulus or less likely a cecal bascule. Florencio Roman MD Abdomen/Pelvis CT 05/24/16 0150 Signed Impressions: Service Date/Time: May 02:38 - CONCLUSION: Massive dilation of the transverse colon Florencio Lewis MD Enema w/Water Soluble 05/24/16 0000 Signed Impressions: Service Date/Time: May 10:48 - CONCLUSION: Large dilated air containing structure consistent with the stomach. A nasogastric tube is present. There is a large amount of stool throughout the colon with no distinct focal abnormality. Francesco Stanton MD Objective Remarks GENERAL: alert, not in distress SKIN: Warm and dry. HEAD: Normocephalic. EYES: No scleral icterus. No injection or drainage. NECK: Supple, trachea midline. No JVD or lymphadenopathy. CARDIOVASCULAR: Regular rate and rhythm without murmurs, gallops, or rubs. RESPIRATORY: Breath sounds equal bilaterally. No accessory muscle use. GASTROINTESTINAL: Abdomen less distended and softer, few bowel sounds, tender only on deep palpation (improved from yesterday's exam) MUSCULOSKELETAL: No cyanosis, or edema. BACK: Nontender without obvious deformity. No CVA tenderness. A/P Assessment and Plan 50-year-old female presenting with nausea vomiting abdominal pain Acute Abdomen - Bowel obstruction keep NGT- monitor output- 500cc + last shift Patient will be continued IV fluids with KCL on IV antibiotics Cipro plus Flagyl IV. GI,CRS on board Acute prerenal azotemia secondary to dehydration continue IVF Hypokalemia. - improved IVF with KCL- increase to 30 meq/L give extra KCL bolus Microscopic hematuria- on UA patient currently on her cycle PPI for GI prophylaxis Increase activity- patient up and ambulating Out of bed to chair Lovenox for DVT prophylaxis Neo Askew MD May 27, 2016 08:05 Neo Askew MD May 27, 2016 08:05
[2016-05-27] MEDS ORDERED: POTASSIUM CHLORIDE INJ 30 MEQ in DEXT 5%-NACL 0.9% 1000 ML INJ 1,000 ML IV SCH (09:00)
[2016-05-27] MEDS: PANTOPRAZOLE SODIUM 40 MG VIAL IV PUSH SCH (09:04)
--- NOTE | 2016-05-27 12:06 | HHI.PR ---
Subjective Remarks ? Cecal volvulus comfortable with pain meds, no significant change Objective Vital Signs Date Time Temp Pulse Resp B/P Pulse Ox O2 Delivery O2 Flow Rate FiO2 05/27/16 08:00 95.7 92 20 132/68 95 05/27/16 00:00 96.7 92 16 126/58 95 05/26/16 21:27 18 05/26/16 20:06 89 05/26/16 20:00 98.6 94 18 124/56 94 05/26/16 16:00 99.0 92 17 128/62 94 I/O 05/26/16 05/26/16 05/26/16 05/27/16 05/27/16 05/27/16 07:00 15:00 23:00 07:00 15:00 23:00 Intake Total 1184 ml 1889 ml 322 ml 1239 ml Output Total 600 ml 1500 ml 430 ml 800 ml Balance 584 ml 389 ml -108 ml 439 ml Intake Oral 60 ml 800 ml IV Total 1124 ml 1089 ml 322 ml 1239 ml Output Urine Total 300 ml 800 ml 400 ml 300 ml Gastric Drainage Total 300 ml 700 ml 30 ml 500 ml # Bowel Movements 0 0 0 0 Result Diagram: 05/26/16 1520 05/27/16 0344 Objective Remarks Abdomen soft, mildly tender mildly distended Assessment and Plan Assessment and Plan Reviewed Upper GI, as well as previous films, with Dr. 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 Also discussed plan for exploratory laparotomy with bowel resection, possibility of stoma. INformed her of (unlikely) situation where it is not a volvulus, which I would deal with appropriately. Risks and benefits of surgery discussed. Patient wishes to proceed. Belia Washburn MD May 27, 2016 12:05
[2016-05-27] MEDS ORDERED: NORMOSOL R INJ 1,000 ML IV ONE (14:06)
[2016-05-27] MEDS ORDERED: LACTATED RINGER'S 1000 ML INJ 2,000 ML IV ONE (14:06)
[2016-05-27] MEDS ORDERED: NEOSTIGMINE 3 MG/3 ML SYR IV ONE (14:06)
[2016-05-27] MEDS ORDERED: ONDANSETRON HCL 4 MG/2 ML VIAL IV PUSH ONE (14:06)
[2016-05-27] MEDS ORDERED: PROPOFOL 200 MG/20 ML AMP IV ONE (14:06)
--- NOTE | 2016-05-27 14:30 | HHI.GIFU ---
GI Follow-up Note Consult Follow-up Subjective: Patient laying in bed comfortably, no new complaints except abdominal pain, no BM Objective: PHYSICAL EXAMINATION: Vitals signs stable No fever HEENT: Pupils round and reactive to light; normocephalic; atraumatic; no jaundice. Throat is clear. NECK: Neck is supple, no JVD, no lymphadenopathy. CHEST: Chest is clear to auscultation and percussion. CARDIAC: Regular rate and rhythm with no murmur gallop or rubs. ABDOMEN: Soft, nondistended, nontender; no hepatosplenomegaly; bowel sounds are present in all four quadrants. EXTREMITIES: No clubbing, cyanosis, or edema. SKIN: Normal; no rash; no jaundice. ROD MILL TENDER: No focal deficits; alert and oriented times three. Available Data (labs, X- Rays, Procedues) : Last Impressions Upper GI Series 05/26/16 0000 Signed Impressions: Service Date/Time: Thursday, May 26, 2016 10:30 - CONCLUSION: 1. Contrast fills a normal-appearing but externally compressed stomach. Gastric emptying is normal. 2. Diversity Manager view demonstrates a dilated segment of colon in the superior abdomen. Based on all of the imaging findings the appearance is very suspicious for cecal volvulus or less likely cecal bascule. Florencio Roman MD ADDENDUM: The above findings were relayed to Dr. Vital via telephone at 1:15 PM. I informed him that the findings were suspicious for cecal volvulus. Florencio Roman MD Abdomen X-Ray 05/26/16 0000 Signed Impressions: Service Date/Time: Thursday, May 26, 2016 10:33 - CONCLUSION: Persistent abnormal dilatation of the colon in the upper abdomen extending to the left upper quadrant. Based on review of all the prior imaging studies the appearance is suspicious for cecal volvulus or less likely a cecal bascule. Florencio Roman MD Abdomen/Pelvis CT 05/24/16 0150 Signed Impressions: Service Date/Time: May 02:38 - CONCLUSION: Massive dilation of the transverse colon Florencio Lewis MD Enema w/Water Soluble 05/24/16 0000 Signed Impressions: Service Date/Time: May 10:48 - CONCLUSION: Large dilated air containing structure consistent with the stomach. A nasogastric tube is present. There is a large amount of stool throughout the colon with no distinct focal abnormality. Francesco Stanton MD Laboratory Tests Test 05/26/16 05/27/16 15:20 03:44 White Blood Count 14.4 TH/MM3 Red Blood Count 4.21 MIL/MM3 Hemoglobin 10.7 GM/DL Hematocrit 33.4 % Mean Corpuscular Volume 79.2 FL Mean Corpuscular Hemoglobin 25.4 PG Mean Corpuscular Hemoglobin 32.1 % Concent Red Cell Distribution Width 16.5 % Platelet Count 342 TH/MM3 Mean Platelet Volume 8.7 FL Neutrophils (%) (Auto) 83.8 % Lymphocytes (%) (Auto) 8.4 % Monocytes (%) (Auto) 6.7 % Eosinophils (%) (Auto) 0.9 % Basophils (%) (Auto) 0.2 % Neutrophils # (Auto) 12.1 TH/MM3 Lymphocytes # (Auto) 1.2 TH/MM3 Monocytes # (Auto) 1.0 TH/MM3 Eosinophils # (Auto) 0.1 TH/MM3 Basophils # (Auto) 0.0 TH/MM3 CBC Comment DIFF FINAL Differential Comment Sodium Level 146 MEQ/L 142 MEQ/L Potassium Level 3.0 MEQ/L 3.5 MEQ/L Chloride Level 110 MEQ/L 108 MEQ/L Carbon Dioxide Level 30.3 MEQ/L 25.9 MEQ/L Anion Gap 6 MEQ/L 8 MEQ/L Blood Urea Nitrogen 12 MG/DL 11 MG/DL Creatinine 0.61 MG/DL 0.59 MG/DL Estimat Glomerular Filtration 104 ML/MIN 108 ML/MIN Rate Random Glucose 110 MG/DL 118 MG/DL Calcium Level 8.0 MG/DL 7.8 MG/DL ASSESSMENT/PLAN: Seen and examined, discussed with Dr. stark , pt going to OR. Gi will sign off. Thank you It was a pleasure seeing aYmel Chen. Thank you for this consult. Entered by: Val Ramon MD May 27, 2016 14:30
[2016-05-27] MEDS ORDERED: ACETAMINOPHEN 1000 MG/100 ML VIAL IV ONE (15:01)
[2016-05-27] MEDS ORDERED: fentaNYL CITRATE 250 MCG/5 ML AMP ONE ×2 (15:01→17:48)
[2016-05-27] MEDS ORDERED: MIDAZOLAM HCL 2 MG/2 ML VIAL ONE (15:01)
[2016-05-27] MEDS ORDERED: DEXAMETHASONE SOD PHOS 4 MG/ML VIAL ONE (15:04)
[2016-05-27] MEDS ORDERED: ENALAPRILAT 1.25 MG/ML VIAL IV PRN (17:30)
[2016-05-27] MEDS ORDERED: ENALAPRILAT 2.5 MG/2 ML VIAL IV PRN (17:30)
[2016-05-27] MEDS ORDERED: ACETAMINOPHEN 325 MG TAB PO PRN (17:30)
[2016-05-27] MEDS ORDERED: KETOROLAC TROMETHAMINE 30 MG/ML (IVP) VIAL IVP PRN (17:30)
[2016-05-27] MEDS ORDERED: SODIUM CHLORIDE 0.9% FLUSH 5 ML FLUSH IVF PRN (17:30)
[2016-05-27] MEDS ORDERED: NALOXONE HCL 0.4 MG/ML AMP IV PRN (17:30)
[2016-05-27] MEDS ORDERED: ONDANSETRON HCL 4 MG/2 ML VIAL IV PRN (17:30)
[2016-05-27] MEDS ORDERED: diphenhydrAMINE HCL 50 MG/ML VIAL IV PRN (17:30)
[2016-05-27] MEDS ORDERED: POTASSIUM CHLOR 40 MEQ PREMIX 100 ML IV PRN (17:30)
[2016-05-27] MEDS ORDERED: POTASSIUM CHLOR 20 MEQ PREMIX 100 ML IV PRN (17:30)
[2016-05-27] MEDS ORDERED: BENZOCAINE 6 MG/MENTHOL 10 MG LOZENGE SUCK-ON PRN (17:30)
[2016-05-27] MEDS ORDERED: Post-op Orders (for Pharmacy) MISC XX ONE (17:30)
[2016-05-27] MEDS ORDERED: ACETAMINOPHEN/HYDROcodone 325 MG/5 MG TAB PO PRN (17:30)
[2016-05-27] MEDS: PCA - TOTAL MG MORPHINE DELIVERED PER SHIFT SCH ×2 (17:30→22:00)
[2016-05-27] MEDS ORDERED: *ONDANSETRON 4 MG VIAL PERIprocedural Use ONLY ONE (17:50)
[2016-05-27] MEDS ORDERED: *morphine SULFATE 8 MG/ML PERIprocedure ONLY ONE (17:50)
[2016-05-27] MEDS ORDERED: DO NOT ADM ANY ANTICOAGULANT DRUGS XX PRN (18:00)
[2016-05-27] MEDS: MORPHINE SULFATE 30 MG/30 ML PCA IV SCH (18:20)
[2016-05-27 19:35] LABS: AUTOMATED NEUTROPHIL # 19.3 TH/MM3 (1.8-7.7); BASOPHIL # 0.1 TH/MM3 (0-0.2); BASOPHIL % 0.3 % (0.0-2.0); EOSINOPHIL # 0.2 TH/MM3 (0-0.4); HEMATOCRIT 36.7 % (35.0-46.0); HEMO FLAGS DIFF FINAL; LYMPH % 2.6 % (9.0-44.0); LYMPHOCYTE # 0.5 TH/MM3 (1.0-4.8); MEAN CELL VOLUME 80.1 FL (80.0-100.0); MEAN CORPUSCULAR HEMOGLOBIN 25.6 PG (27.0-34.0); NEUT % 93.1 % (16.0-70.0); PLATELET COUNT 394 TH/MM3 (150-450); RED BLOOD COUNT 4.58 MIL/MM3 (4.00-5.30); RED CELL DISTRIBUTION WIDTH 16.7 % (11.6-17.2); WHITE BLOOD COUNT 20.8 TH/MM3 (4.0-11.0)
[2016-05-27 20:00] LABS: BICARBONATE 24.1 MEQ/L (21.0-32.0)
[2016-05-27 20:14] LABS: CALCIUM-PROTEIN CORRECTED 7.9 MG/DL (8.5-10.1)
[2016-05-27] MEDS: HEPARIN SODIUM - SQ 10,000 UNITS/ML VIAL SQ SCH (21:41)
[2016-05-27] MEDS: SODIUM CHLORIDE 0.9% FLUSH 5 ML FLUSH IVF SCH (21:42)
[2016-05-28] VITALS (7 sets, daily range): BP systolic 92–134; BP diastolic 51–67; PULSE 77–99; RESP 18–19; TEMP 97.7–99.4; O2SAT 93–99
[2016-05-28] MEDS: D5-NS + KCL 20 MEQ INJ 1,000 ML IV SCH ×3 (01:44→13:32)
[2016-05-28] MEDS: CIPROFLOXACIN 400 MG PREMIX 200 ML IV SCH ×2 (04:57→15:31)
[2016-05-28] MEDS: PCA - TOTAL MG MORPHINE DELIVERED PER SHIFT SCH ×3 (05:48→22:00)
[2016-05-28] MEDS: MORPHINE SULFATE 30 MG/30 ML PCA IV SCH ×2 (05:48→20:03)
[2016-05-28 05:58] LABS: AUTOMATED NEUTROPHIL # 24.9 TH/MM3 (1.8-7.7); BASOPHIL # 0.1 TH/MM3 (0-0.2); BASOPHIL % 0.5 % (0.0-2.0); EOSINOPHIL % 0.1 % (0.0-4.0); HEMATOCRIT 31.3 % (35.0-46.0); LYMPH % 3.7 % (9.0-44.0); MEAN CELL VOLUME 78.9 FL (80.0-100.0); MEAN CORPUSCULAR HGB CONC 32.9 % (32.0-36.0); MONO % 5.3 % (0.0-8.0); NEUT % 90.4 % (16.0-70.0); PLATELET COUNT 326 TH/MM3 (150-450); RED BLOOD COUNT 3.97 MIL/MM3 (4.00-5.30); RED CELL DISTRIBUTION WIDTH 16.1 % (11.6-17.2); WHITE BLOOD COUNT 27.6 TH/MM3 (4.0-11.0)
[2016-05-28 06:01] LABS: BICARBONATE 23.2 MEQ/L (21.0-32.0); POTASSIUM 4.8 MEQ/L (3.5-5.1)
[2016-05-28 06:45] LABS: HEMO FLAGS AUTO DIFF
[2016-05-28 06:55] LABS: BANDS 2 % (0-6); NEUTROPHIL # MANUAL DIFF 24.6 TH/MM3 (1.8-7.7); PLATELET ESTIMATE SMEAR NORMAL (NORMAL); PLATELET MORPHOLOGY CLUMPED (NORMAL); POLYS (SEG NEUTROPHILS) 87 % (16-70); SCAN/DIFF FINAL DIFF MANUAL; WBC DIFF SAMPLE 100
[2016-05-28] MEDS: metroNIDAZOLE 500 MG INJ 100 ML IV SCH ×2 (08:45→15:31)
[2016-05-28] MEDS: HEPARIN SODIUM - SQ 10,000 UNITS/ML VIAL SQ SCH ×2 (08:46→20:06)
[2016-05-28] MEDS: PANTOPRAZOLE SODIUM 40 MG VIAL IVP SCH (08:47)
[2016-05-28] MEDS: SODIUM CHLORIDE 0.9% FLUSH 5 ML FLUSH IVF SCH ×2 (08:47→20:10)
--- NOTE | 2016-05-28 10:30 | HHI.PR ---
Subjective Remarks abdomen feels "sore" NGT draining Objective Vitals Vital Signs Date Time Temp Pulse Resp B/P Pulse Ox O2 Delivery O2 Flow Rate FiO2 05/28/16 08:00 97.7 83 19 109/54 97 05/28/16 07:38 99 21 05/28/16 06:20 18 05/28/16 05:48 18 05/28/16 05:48 18 05/28/16 04:00 98.1 77 18 92/51 96 05/28/16 00:00 97.8 86 18 102/57 97 05/27/16 22:00 97.2 83 18 94/54 95 05/27/16 22:00 18 05/27/16 21:01 96 Nasal Cannula 2.00 05/27/16 20:45 85 05/27/16 20:00 97.9 78 18 95/50 97 05/27/16 18:45 72 16 128/62 98 Nasal Cannula 2 05/27/16 18:30 72 16 130/62 97 Nasal Cannula 2 05/27/16 18:20 16 05/27/16 18:15 74 16 118/63 99 Nasal Cannula 2 05/27/16 18:00 88 16 121/65 96 Nasal Cannula 2 05/27/16 17:45 106 16 120/71 96 Nasal Cannula 2 05/27/16 17:40 98.0 136 16 128/52 95 Nasal Cannula 2 05/27/16 16:00 99.0 82 20 132/62 94 05/27/16 12:00 98.1 97 20 127/62 93 I/O 05/27/16 05/27/16 05/27/16 05/28/16 05/28/16 05/28/16 07:00 15:00 23:00 07:00 15:00 23:00 Intake Total 1239 ml 605 ml 1675 ml 0 ml Output Total 800 ml 425 ml 650 ml Balance 439 ml 180 ml 1025 ml 0 ml Intake Oral 0 ml 0 ml IV Total 1239 ml 605 ml 1675 ml Output Urine Total 300 ml 125 ml 550 ml Gastric Drainage Total 500 ml 300 ml 100 ml # Voids 3 # Bowel Movements 0 1 0 # Sanitary Pads 2 Pads Result Diagram: 05/28/16 0523 05/28/16 0523 Imaging Last Impressions Upper GI Series 05/26/16 0000 Signed Impressions: Service Date/Time: Thursday, May 26, 2016 10:30 - CONCLUSION: 1. Contrast fills a normal-appearing but externally compressed stomach. Gastric emptying is normal. 2. Dredge Pump Operator view demonstrates a dilated segment of colon in the superior abdomen. Based on all of the imaging findings the appearance is very suspicious for cecal volvulus or less likely cecal bascule. Florencio Roman MD ADDENDUM: The above findings were relayed to Dr. Vital via telephone at 1:15 PM. I informed him that the findings were suspicious for cecal volvulus. Florencio Roman MD Abdomen X-Ray 05/26/16 0000 Signed Impressions: Service Date/Time: Thursday, May 26, 2016 10:33 - CONCLUSION: Persistent abnormal dilatation of the colon in the upper abdomen extending to the left upper quadrant. Based on review of all the prior imaging studies the appearance is suspicious for cecal volvulus or less likely a cecal bascule. Florencio Roman MD Abdomen/Pelvis CT 05/24/16 0150 Signed Impressions: Service Date/Time: May 02:38 - CONCLUSION: Massive dilation of the transverse colon Florencio Lewis MD Enema w/Water Soluble 05/24/16 0000 Signed Impressions: Service Date/Time: May 10:48 - CONCLUSION: Large dilated air containing structure consistent with the stomach. A nasogastric tube is present. There is a large amount of stool throughout the colon with no distinct focal abnormality. Francesco Stanton MD Objective Remarks GENERAL:awke and aler SKIN: Warm and dry. NGT tube in place EYES: No scleral icterus. No injection or drainage. NECK: Supple, trachea midline. No JVD or lymphadenopathy. CARDIOVASCULAR: Regular rate and rhythm without murmurs, gallops, or rubs. RESPIRATORY: Breath sounds equal bilaterally. No accessory muscle use. GASTROINTESTINAL: abdomen- with post op dressing in place, horizontal incision lower abdominal area george in place MUSCULOSKELETAL: No cyanosis, or edema. BACK: Nontender without obvious deformity. No CVA tenderness. 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 GS Acute prerenal azotemia secondary to dehydration continue IVF Hypokalemia. -ff lytes daily IVF with KCL- increase to 30 meq/L give extra KCL bolus Microscopic hematuria- on UA patient currently on her cycle PPI for GI prophylaxis Increase activity- patient up and ambulating Out of bed to chair Lovenox for DVT prophylaxis Neo Askew MD May 28, 2016 10:30
--- NOTE | 2016-05-28 14:38 | HHI.PR ---
Subjective Remarks POD#1 s/p ascending colectomy for cecal volvulus comfortable, no nausea Objective Vital Signs Date Time Temp Pulse Resp B/P Pulse Ox O2 Delivery O2 Flow Rate FiO2 05/28/16 13:32 22 05/28/16 12:00 98.3 96 18 112/60 96 05/28/16 08:00 97.7 83 19 109/54 97 05/28/16 07:38 99 21 05/28/16 06:20 18 05/28/16 05:48 18 05/28/16 05:48 18 05/28/16 04:00 98.1 77 18 92/51 96 05/28/16 00:00 97.8 86 18 102/57 97 05/27/16 22:00 97.2 83 18 94/54 95 05/27/16 22:00 18 05/27/16 21:01 96 Nasal Cannula 2.00 05/27/16 20:45 85 05/27/16 20:00 97.9 78 18 95/50 97 05/27/16 18:45 72 16 128/62 98 Nasal Cannula 2 05/27/16 18:30 72 16 130/62 97 Nasal Cannula 2 05/27/16 18:20 16 05/27/16 18:15 74 16 118/63 99 Nasal Cannula 2 05/27/16 18:00 88 16 121/65 96 Nasal Cannula 2 05/27/16 17:45 106 16 120/71 96 Nasal Cannula 2 05/27/16 17:40 98.0 136 16 128/52 95 Nasal Cannula 2 05/27/16 16:00 99.0 82 20 132/62 94 I/O 05/27/16 05/27/16 05/27/16 05/28/16 05/28/16 05/28/16 07:00 15:00 23:00 07:00 15:00 23:00 Intake Total 1239 ml 605 ml 1675 ml 120 ml Output Total 800 ml 425 ml 650 ml 800 ml Balance 439 ml 180 ml 1025 ml -680 ml Intake Oral 0 ml 120 ml IV Total 1239 ml 605 ml 1675 ml Output Urine Total 300 ml 125 ml 550 ml 400 ml Stool Total 400 ml Gastric Drainage Total 500 ml 300 ml 100 ml # Voids 3 # Bowel Movements 0 1 0 # Sanitary Pads 2 Pads Result Diagram: 05/28/1652217 0523 Objective Remarks Abdomen soft, mildly tender mild distension dressing c/d/i Assessment and Plan Assessment and Plan Doing well D/C NGT - hold on PO Mobilize Belia Washburn MD May 28, 2016 14:38
[2016-05-29] VITALS: BP 114/56; PULSE 96; RESP 16; TEMP 98.2; O2SAT 93
[2016-05-29] MEDS: CIPROFLOXACIN 400 MG PREMIX 200 ML IV SCH ×2 (03:52→14:39)
[2016-05-29] MEDS: D5-NS + KCL 20 MEQ INJ 1,000 ML IV SCH ×2 (03:52→07:52)
[2016-05-29] MEDS: MORPHINE SULFATE 30 MG/30 ML PCA IV SCH ×2 (04:03→18:00)
[2016-05-29 05:35] LABS: AUTOMATED NEUTROPHIL # 9.7 TH/MM3 (1.8-7.7); BASOPHIL # 0.1 TH/MM3 (0-0.2); BASOPHIL % 0.4 % (0.0-2.0); EOSINOPHIL # 0.3 TH/MM3 (0-0.4); EOSINOPHIL % 2.6 % (0.0-4.0); HEMATOCRIT 28.1 % (35.0-46.0); HEMO FLAGS DIFF FINAL; LYMPH % 12.4 % (9.0-44.0); LYMPHOCYTE # 1.6 TH/MM3 (1.0-4.8); MEAN CELL VOLUME 77.8 FL (80.0-100.0); MEAN CORPUSCULAR HEMOGLOBIN 25.2 PG (27.0-34.0); MEAN CORPUSCULAR HGB CONC 32.5 % (32.0-36.0); MONO % 10.6 % (0.0-8.0); PLATELET COUNT 412 TH/MM3 (150-450); RED BLOOD COUNT 3.62 MIL/MM3 (4.00-5.30); RED CELL DISTRIBUTION WIDTH 16.2 % (11.6-17.2); WHITE BLOOD COUNT 13.1 TH/MM3 (4.0-11.0)
[2016-05-29] MEDS: PCA - TOTAL MG MORPHINE DELIVERED PER SHIFT SCH ×2 (05:39→14:00)
[2016-05-29 06:08] LABS: BICARBONATE 25.4 MEQ/L (21.0-32.0); POTASSIUM 3.5 MEQ/L (3.5-5.1)
[2016-05-29] MEDS: PANTOPRAZOLE SODIUM 40 MG VIAL IVP SCH (07:50)
[2016-05-29] MEDS: HEPARIN SODIUM - SQ 10,000 UNITS/ML VIAL SQ SCH ×2 (07:52→20:18)
[2016-05-29] MEDS: SODIUM CHLORIDE 0.9% FLUSH 5 ML FLUSH IVF SCH ×2 (07:53→20:18)
[2016-05-29 08:00] VITALS: BP 114/66; PULSE 98; RESP 17; TEMP 98.2; O2SAT 95
--- NOTE | 2016-05-29 11:20 | HHI.PR ---
Subjective Remarks Patient seen today around 10:30 AM. Patient says she feels well. Denies any nausea or vomiting. She reports that abdominal pain is improving. No chest pain or shortness of breath. Denies any bleeding. Objective Vital Signs Date Time Temp Pulse Resp B/P Pulse Ox O2 Delivery O2 Flow Rate FiO2 05/29/16 08:00 98.2 98 17 114/66 95 05/29/16 05:39 16 05/29/16 04:10 16 05/29/16 00:00 98.2 96 16 114/56 93 05/28/16 22:00 18 05/28/16 20:03 16 05/28/16 20:00 99.4 96 18 134/63 93 05/28/16 16:00 98.8 99 18 122/67 95 05/28/16 13:32 22 05/28/16 12:00 98.3 96 18 112/60 96 I/O 05/28/16 05/28/16 05/28/16 05/29/16 05/29/16 05/29/16 07:00 15:00 23:00 07:00 15:00 23:00 Intake Total 1675 ml 1160 ml 600 ml 1050 ml 0 ml Output Total 650 ml 1550 ml 350 ml 400 ml Balance 1025 ml -390 ml 250 ml 650 ml 0 ml Intake Oral 0 ml 120 ml 0 ml IV Total 1675 ml 1040 ml 600 ml 1050 ml Output Urine Total 550 ml 400 ml 350 ml 400 ml Stool Total 400 ml Gastric Drainage Total 100 ml 750 ml # Bowel Movements 0 0 0 # Sanitary Pads 2 Pads Result Diagram: 05/29/16 0410 05/29/16 0410 Imaging Last Impressions Upper GI Series 05/26/16 0000 Signed Impressions: Service Date/Time: Thursday, May 26, 2016 10:30 - CONCLUSION: 1. Contrast fills a normal-appearing but externally compressed stomach. Gastric emptying is normal. 2. Professor/Nurse Anesthetist view demonstrates a dilated segment of colon in the superior abdomen. Based on all of the imaging findings the appearance is very suspicious for cecal volvulus or less likely cecal bascule. Florencio Roman MD ADDENDUM: The above findings were relayed to Dr. Vital via telephone at 1:15 PM. I informed him that the findings were suspicious for cecal volvulus. Florencio Roman MD Abdomen X-Ray 05/26/16 0000 Signed Impressions: Service Date/Time: Thursday, May 26, 2016 10:33 - CONCLUSION: Persistent abnormal dilatation of the colon in the upper abdomen extending to the left upper quadrant. Based on review of all the prior imaging studies the appearance is suspicious for cecal volvulus or less likely a cecal bascule. Florencio Roman MD Abdomen/Pelvis CT 05/24/16 0150 Signed Impressions: Service Date/Time: May 02:38 - CONCLUSION: Massive dilation of the transverse colon Florencio Lewis MD Enema w/Water Soluble 05/24/16 0000 Signed Impressions: Service Date/Time: May 10:48 - CONCLUSION: Large dilated air containing structure consistent with the stomach. A nasogastric tube is present. There is a large amount of stool throughout the colon with no distinct focal abnormality. Francesco Stanton MD Objective Remarks GENERAL: Patient lying in bed. Appears comfortable. Alert and oriented 3. SKIN: Warm and dry. HEAD: Normocephalic. EYES: No scleral icterus. No injection or drainage. NECK: Supple, trachea midline. No JVD. CARDIOVASCULAR: Regular rate and rhythm without murmurs, gallops, or rubs. RESPIRATORY: Breath sounds equal bilaterally. No accessory muscle use. GASTROINTESTINAL: Abdominal binder in place. Abdomen soft, non-tender, nondistended. No rebound or guarding. Positive bowel sounds. MUSCULOSKELETAL: No cyanosis, or edema. BACK: Nontender without obvious deformity. No CVA tenderness. 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 Appreciate assistance. Post surgical management as per surgical service. -Continue Gee catheter. //Leukocytosis- trending down =05/29 =hg27-->13.1 -Monitor //Postoperative anemia. -Hemoglobin 10.3 ==> 9.1 -Continue to monitor //Acute prerenal azotemia secondary to dehydration Creatinine stable. continue IVF. Continue to monitor //Hypokalemia. -Resolved after replacement. Continue to monitor closely. //Microscopic hematuria- on UA patient currently on her cycle //PPI for GI prophylaxis Increase activity- patient up and ambulating Out of bed to chair //DVT prophylaxis. Heparin. Otherwise as per surgical service. Discharge Planning As per surgical service. Jerome Calvillo MD May 29, 2016 11:20
[2016-05-29 11:45] VITALS: BP 107/62; PULSE 88; RESP 17; TEMP 98.2; O2SAT 96
--- NOTE | 2016-05-29 13:37 | HHI.PR ---
Subjective Remarks POD#2 s/p ascending colectomy for cecal volvulus no nausea Objective Vital Signs Date Time Temp Pulse Resp B/P Pulse Ox O2 Delivery O2 Flow Rate FiO2 05/29/16 11:45 98.2 88 17 107/62 96 05/29/16 08:00 98.2 98 17 114/66 95 05/29/16 05:39 16 05/29/16 04:10 16 05/29/16 00:00 98.2 96 16 114/56 93 05/28/16 22:00 18 05/28/16 20:03 16 05/28/16 20:00 99.4 96 18 134/63 93 05/28/16 16:00 98.8 99 18 122/67 95 I/O 05/28/16 05/28/16 05/28/16 05/29/16 05/29/16 05/29/16 07:00 15:00 23:00 07:00 15:00 23:00 Intake Total 1675 ml 1160 ml 600 ml 1050 ml 0 ml Output Total 650 ml 1550 ml 350 ml 400 ml Balance 1025 ml -390 ml 250 ml 650 ml 0 ml Intake Oral 0 ml 120 ml 0 ml IV Total 1675 ml 1040 ml 600 ml 1050 ml Output Urine Total 550 ml 400 ml 350 ml 400 ml Stool Total 400 ml Gastric Drainage Total 100 ml 750 ml # Bowel Movements 0 0 0 # Sanitary Pads 2 Pads Result Diagram: 05/29/1640905/29/16409 Objective Remarks Abdomen soft, mildly tender nondistended wound clean Assessment and Plan Assessment and Plan Try clears cautiously Mobilize Belia Washburn MD May 29, 2016 13:37
[2016-05-29 16:00] VITALS: BP 111/68; PULSE 98; RESP 17; TEMP 98.4; O2SAT 96
[2016-05-29 20:00] VITALS: BP 100/52; PULSE 106; RESP 18; TEMP 98.6; O2SAT 96
[2016-05-30] VITALS (8 sets, daily range): BP systolic 100–117; BP diastolic 52–61; PULSE 88–125; RESP 17–19; TEMP 97.4–98.7; O2SAT 95–98
[2016-05-30] MEDS: PCA - TOTAL MG MORPHINE DELIVERED PER SHIFT SCH ×4 (00:11→22:00)
[2016-05-30] MEDS: CIPROFLOXACIN 400 MG PREMIX 200 ML IV SCH ×2 (04:07→14:53)
[2016-05-30] MEDS: MORPHINE SULFATE 30 MG/30 ML PCA IV SCH ×2 (04:08→14:52)
[2016-05-30 05:32] LABS: AUTOMATED NEUTROPHIL # 6.5 TH/MM3 (1.8-7.7); BASOPHIL # 0.1 TH/MM3 (0-0.2); BASOPHIL % 0.8 % (0.0-2.0); EOSINOPHIL # 0.5 TH/MM3 (0-0.4); EOSINOPHIL % 5.3 % (0.0-4.0); HEMATOCRIT 30.1 % (35.0-46.0); HEMO FLAGS DIFF FINAL; LYMPH % 14.2 % (9.0-44.0); LYMPHOCYTE # 1.4 TH/MM3 (1.0-4.8); MEAN CELL VOLUME 78.1 FL (80.0-100.0); MEAN CORPUSCULAR HEMOGLOBIN 25.5 PG (27.0-34.0); MEAN CORPUSCULAR HGB CONC 32.7 % (32.0-36.0); MONO % 12.7 % (0.0-8.0); PLATELET COUNT 470 TH/MM3 (150-450); RED BLOOD COUNT 3.86 MIL/MM3 (4.00-5.30); RED CELL DISTRIBUTION WIDTH 16.4 % (11.6-17.2); WHITE BLOOD COUNT 9.7 TH/MM3 (4.0-11.0)
[2016-05-30 05:53] LABS: BICARBONATE 27.4 MEQ/L (21.0-32.0); POTASSIUM 3.6 MEQ/L (3.5-5.1)
[2016-05-30] MEDS: D5-NS + KCL 20 MEQ INJ 1,000 ML IV SCH (07:14)
[2016-05-30] MEDS: PANTOPRAZOLE SODIUM 40 MG VIAL IVP SCH (09:44)
[2016-05-30] MEDS: HEPARIN SODIUM - SQ 10,000 UNITS/ML VIAL SQ SCH ×2 (09:44→20:38)
[2016-05-30] MEDS: SODIUM CHLORIDE 0.9% FLUSH 5 ML FLUSH IVF SCH ×2 (09:45→20:38)
--- NOTE | 2016-05-30 19:03 | MP ---
cc: EVER WASHBURN M.D. DATE OF SURGERY: May 27, 2016 PREOPERATIVE DIAGNOSIS Cecal volvulus. POSTOPERATIVE DIAGNOSIS Cecal volvulus. PROCEDURE Exploratory laparotomy with ascending colectomy. SURGEON vEer Washburn MD. LIMNOLOGIST: None ANESTHESIA General per ET tube ESTIMATED BLOOD LOSS 100 cc OPERATIVE INDICATIONS The patient is a 50-year-old female with somewhat confusing radiographic evidence, but eventual diagnosis of cecal volvulus. OPERATIVE FINDINGS Cecal volvulus with massively dilated cecum but no vascular compromise. There was quite a bit of chronicity with thickening of the bowel at the volvulus. The liver and gallbladder were visibly and palpably normal, as was the uterus and the ovaries. The small bowel was run with no abnormalities noted within the small bowel. The patient did have an extremely long redundant colon with a long redundant transverse colon, a redundant descending colon and an extremely redundant sigmoid colon as well, but all appeared healthy although elongated. OPERATIVE COURSE: The patient was brought to the operating room, and placed in the supine position. After induction of general anesthesia, the patient was placed in Olu stirrups and all bony prominences were carefully padded. The skin of the perineal area, as well the abdominal area, was then prepped and draped in the usual sterile fashion. Initially a transverse incision was made, midway between the umbilicus and the pubic tubercle, beginning in the midline and proceeding to the right side. Using electrocautery, dissection was carried down to the fascia of the anterior abdominal wall which was split. Immediately, she had quite a bit of serous fluid that was suctioned out of the belly and the patient was noted to have a massively dilated section of bowel. The small bowel was not dilated. However, with this very large area I felt that I was going to need to increase the size of my incision. I did increase it over to about the mid clavicular line. At this point I was able to visualize the area and did confirm palpably that it was indeed a cecal volvulus and I elected to proceed with decompression of the volvulus before proceeding with surgery. Two encircling pursestring sutures were made around the section most easily reached on the volvulus and held but not tied. An incision was then made in the center of this [place] and the evans sucker was placed into the volvulus itself. We had immediate decompression of a large amount of air which softened it up significantly and then quite a bit of stool was suctioned out as well. At this point I felt that the bowel was soft and easily pliable and would be easier to manipulate. Both pursestring sutures were then secured. The bowel was then gently removed. from the peritoneal cavity. There were some chronic adhesions to the right upper quadrant, however with gentle pressure they were able to be divided fairly easily and the volvulus was gently pulled out and through the incision. The vascular pedicle was carefully and gently untangled until the bowel was in its more normal orientation with the extremely long loop of pedicle. In addition, the ascending colon was somewhat involved. About the level of the hepatic flexure there was an area of scarring and a chronic narrowing indicating the likely chronic nature of this condition. The ileocolic vessels were then dissected free, doubly clamped proximally, singly clamped distally, divided and ligated using 0 Vicryl ties. A site was chosen for division of the terminal ileum, approximately 12-15 cm proximal to ileocecal valve where the bowel was pink and healthy. The mesentery at this level was serially divided and ligated using 0 Vicryl ties, and a TLC 55 stapler was placed across the bowel at this level, and the bowel was amputated. Due to the chronic nature of the inflammation and some scarring of hepatic flexure. I elected to proceed just distal to the hepatic flexure for the distal transection. The mesentery at this level was serially divided and ligated, using 0 Vicryl ties, and a reload of the TLC 55 stapler was placed across the bowel at this level. The specimen taken to a back table where it was later opened and no pathology was found other than the massive dilatation and chronically thickened bowel. The peritoneal cavity was then examined closely. There was no sign of any significant bleeding. The liver was visualized, as was the gallbladder, the uterus and the ovaries. The small bowel was run beginning at the ligament of Treitz and proceeding distally to the staple line. The wound was then protected with clean laparotomy sponges and the antimesenteric corner of the small bowel staple line was removed sharply. One limb of the gastrointestinal stapler was placed down into the small intestine. The antimesenteric corner of the transverse colon was removed sharply, and the transverse colon was then suctioned out with removal of a large amount of air and liquid stool. The other end of the stapler was placed down the colonic side. The stapler was then closed along the antimesenteric side of the bowel. The TLC 55 stapler was stapled down the length of the bowel, thus creating an enteroenterotomy. The resulting enterotomy was closed transversely, using the TX 60 stapling device. A simple stay suture was placed at the distal end of the staple line using 3-0 Vicryl. The mesenteric defect was closed in a running fashion, using 3-0 Vicryl. The bowel was then gently returned to the peritoneal cavity. The peritoneal cavity was then copiously irrigated with warm normal saline. The omentum was brought down to lay over the anterior surface of the bowel, and a piece of Seprafilm was placed over the bowel. The posterior fascia of the anterior abdominal wall was closed in a running fashion using looped #1 PDS, and the anterior fascia of the anterior abdominal was was closed in a running fashion using double-stranded PDS. The wound was copiously irrigated with a with warm normal saline. The skin was closed in a running Subcuticular fashion, using 3-0 Vicryl. A sterile dressing was then applied. All sponge, needle and instrument counts were correct and the patient was returned to the post anesthesia care unit in a stable condition. MD DAMEON Samano/abilio /5:34 PM /6:41 PM HIRAL
--- NOTE | 2016-05-30 22:08 | HHI.PR ---
Subjective Remarks Patient seen this morning around 11 AM. Says she is feeling better than yesterday. Abdominal pain improving. Still no bowel movement. Denies any nausea or vomiting. Objective Vital Signs Date Time Temp Pulse Resp B/P Pulse Ox O2 Delivery O2 Flow Rate FiO2 05/30/16 20:00 97.6 118 19 100/59 95 05/30/16 16:00 98.3 125 19 106/54 98 05/30/16 14:57 16 05/30/16 14:52 16 05/30/16 14:00 16 05/30/16 11:48 98.7 97 18 116/52 97 05/30/16 08:00 97.9 90 18 110/61 95 05/30/16 06:51 16 05/30/16 04:08 16 05/30/16 04:00 97.4 88 17 106/54 95 05/30/16 00:11 16 05/30/16 00:00 97.6 93 18 115/56 97 I/O 05/29/16 05/29/16 05/29/16 05/30/16 05/30/16 05/30/16 07:00 15:00 23:00 07:00 15:00 23:00 Intake Total 1050 ml 1059 ml 578 ml 798 ml 1572 ml 303 ml Output Total 400 ml 2000 ml 400 ml 400 ml 600 ml Balance 650 ml -941 ml 178 ml 398 ml 972 ml 303 ml Intake Oral 0 ml 240 ml 240 ml 1080 ml IV Total 1050 ml 1059 ml 338 ml 558 ml 492 ml 303 ml Output Urine Total 400 ml 2000 ml 400 ml 400 ml 600 ml # Bowel Movements 0 0 0 0 0 # Sanitary Pads 2 Pads 2 Pads Result Diagram: 05/30/16 0501 05/30/16 0501 Objective Remarks GENERAL: Patient lying in bed. Appears comfortable. Alert and oriented 3. SKIN: Warm and dry. HEAD: Normocephalic. EYES: No scleral icterus. No injection or drainage. NECK: Supple, trachea midline. No JVD. CARDIOVASCULAR: Regular rate and rhythm without murmurs, gallops, or rubs. RESPIRATORY: Breath sounds equal bilaterally. No accessory muscle use. GASTROINTESTINAL: Abdominal binder again in place. Abdomen soft, non-tender, nondistended. No rebound or guarding. Positive bowel sounds. MUSCULOSKELETAL: No cyanosis, or edema. BACK: Nontender without obvious deformity. No CVA tenderness. 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 Appreciate assistance. Post surgical management as per surgical service. -disContinue Gee catheter. -Still awaiting return of bowel function //Leukocytosis-resolved on 05/30. =05/29 =hg27-->13.1 -05/30. Resolved white blood cells 9.7. -Monitor //Postoperative anemia. -Hemoglobin 10.3 ==> 9.1-->9.8 -Continue to monitor //Acute prerenal azotemia secondary to dehydration Creatinine stable. continue IVF. Continue to monitor //Hypokalemia. -Resolved after replacement. Continue to monitor closely. //Microscopic hematuria- on UA patient currently on her cycle //PPI for GI prophylaxis //DVT prophylaxis. Heparin. Otherwise as per surgical service. Discharge Planning As per surgical service. Jerome Calvillo MD May 30, 2016 22:08
[2016-05-31] MEDS: CIPROFLOXACIN 400 MG PREMIX 200 ML IV SCH ×2 (02:31→14:57)
[2016-05-31] MEDS: MORPHINE SULFATE 30 MG/30 ML PCA IV SCH ×2 (02:35→13:27)
[2016-05-31 04:00] VITALS: BP 115/60; PULSE 108; RESP 18; TEMP 97.6; O2SAT 95
[2016-05-31 04:40] LABS: AUTOMATED NEUTROPHIL # 6.2 TH/MM3 (1.8-7.7); BASOPHIL # 0.1 TH/MM3 (0-0.2); BASOPHIL % 1.2 % (0.0-2.0); EOSINOPHIL # 0.6 TH/MM3 (0-0.4); EOSINOPHIL % 5.9 % (0.0-4.0); HEMATOCRIT 31.7 % (35.0-46.0); HEMO FLAGS DIFF FINAL; LYMPH % 15.2 % (9.0-44.0); LYMPHOCYTE # 1.5 TH/MM3 (1.0-4.8); MEAN CORPUSCULAR HEMOGLOBIN 25.2 PG (27.0-34.0); MEAN CORPUSCULAR HGB CONC 32.3 % (32.0-36.0); MONO % 14.1 % (0.0-8.0); NEUT % 63.6 % (16.0-70.0); PLATELET COUNT 519 TH/MM3 (150-450); RED BLOOD COUNT 4.07 MIL/MM3 (4.00-5.30); RED CELL DISTRIBUTION WIDTH 16.6 % (11.6-17.2); WHITE BLOOD COUNT 9.8 TH/MM3 (4.0-11.0)
[2016-05-31 04:55] LABS: BICARBONATE 22.6 MEQ/L (21.0-32.0); POTASSIUM 3.8 MEQ/L (3.5-5.1)
[2016-05-31] MEDS: PCA - TOTAL MG MORPHINE DELIVERED PER SHIFT SCH ×2 (06:00→13:27)
[2016-05-31] MEDS: D5-NS + KCL 20 MEQ INJ 1,000 ML IV SCH (06:00)
[2016-05-31 08:00] VITALS: BP 115/57; PULSE 105; RESP 16; TEMP 98.7; O2SAT 95
[2016-05-31] MEDS: SODIUM CHLORIDE 0.9% FLUSH 5 ML FLUSH IVF SCH ×2 (09:00→19:37)
[2016-05-31] MEDS: PANTOPRAZOLE SODIUM 40 MG VIAL IVP SCH (09:37)
[2016-05-31] MEDS: HEPARIN SODIUM - SQ 10,000 UNITS/ML VIAL SQ SCH ×2 (09:38→19:37)
[2016-05-31 12:00] VITALS: BP 128/60; PULSE 102; RESP 17; TEMP 97.7; O2SAT 95
[2016-05-31 16:00] VITALS: BP 113/54; PULSE 116; RESP 18; TEMP 95.8; O2SAT 96
--- NOTE | 2016-05-31 17:04 | HHI.PR ---
Subjective Remarks POD#4 s/p ascending colectomy for cecal volvulus hungry Objective Vital Signs Date Time Temp Pulse Resp B/P Pulse Ox O2 Delivery O2 Flow Rate FiO2 05/31/16 13:27 17 05/31/16 13:27 17 05/31/16 12:00 97.7 102 17 128/60 95 05/31/16 08:00 98.7 105 16 115/57 95 05/31/16 06:00 20 05/31/16 04:00 97.6 108 18 115/60 95 05/31/16 02:40 18 05/31/16 02:35 18 05/30/16 23:55 98.6 117 18 117/56 95 05/30/16 22:00 20 05/30/16 20:03 122 05/30/16 20:00 97.6 118 19 100/59 95 I/O 05/30/16 05/30/16 05/30/16 05/31/16 05/31/16 05/31/16 07:00 15:00 23:00 07:00 15:00 23:00 Intake Total 798 ml 1572 ml 543 ml 628 ml 760 ml Output Total 400 ml 600 ml 400 ml 400 ml 600 ml Balance 398 ml 972 ml 143 ml 228 ml 160 ml Intake Oral 240 ml 1080 ml 240 ml 240 ml 475 ml IV Total 558 ml 492 ml 303 ml 388 ml 285 ml Output Urine Total 400 ml 600 ml 400 ml 400 ml 600 ml # Bowel Movements 0 0 0 0 0 # Sanitary Pads 2 Pads Result Diagram: 05/31/1641905/31/160 Objective Remarks Abdomen soft, mildly tender mild distension wound clean Assessment and Plan Assessment and Plan Full liquids Belia Washburn MD May 31, 2016 17:04
--- NOTE | 2016-05-31 19:22 | HHI.PR ---
Subjective Remarks Patient seen this afternoon around 2:30 PM. She says she is feeling better. Abdominal pain much improved. Denies any nausea or vomiting. Still no bowel movement. Says she is hungry. Objective Vital Signs Date Time Temp Pulse Resp B/P Pulse Ox O2 Delivery O2 Flow Rate FiO2 05/31/16 16:00 95.8 116 18 113/54 96 05/31/16 13:27 17 05/31/16 13:27 17 05/31/16 12:00 97.7 102 17 128/60 95 05/31/16 08:00 98.7 105 16 115/57 95 05/31/16 06:00 20 05/31/16 04:00 97.6 108 18 115/60 95 05/31/16 02:40 18 05/31/16 02:35 18 05/30/16 23:55 98.6 117 18 117/56 95 05/30/16 22:00 20 05/30/16 20:03 122 05/30/16 20:00 97.6 118 19 100/59 95 I/O 05/30/16 05/30/16 05/30/16 05/31/16 05/31/16 05/31/16 07:00 15:00 23:00 07:00 15:00 23:00 Intake Total 798 ml 1572 ml 543 ml 628 ml 760 ml 291 ml Output Total 400 ml 600 ml 400 ml 400 ml 600 ml Balance 398 ml 972 ml 143 ml 228 ml 160 ml 291 ml Intake Oral 240 ml 1080 ml 240 ml 240 ml 475 ml IV Total 558 ml 492 ml 303 ml 388 ml 285 ml 291 ml Output Urine Total 400 ml 600 ml 400 ml 400 ml 600 ml # Bowel Movements 0 0 0 0 0 # Sanitary Pads 2 Pads Result Diagram: 05/31/1641905/31/160 Objective Remarks GENERAL: Patient lying in bed. Appears comfortable. Alert and oriented 3.patient appears in better spirits today. Otherwise no changes on exam. SKIN: Warm and dry. HEAD: Normocephalic. EYES: No scleral icterus. No injection or drainage. NECK: Supple, trachea midline. No JVD. CARDIOVASCULAR: Regular rate and rhythm without murmurs, gallops, or rubs. RESPIRATORY: Breath sounds equal bilaterally. No accessory muscle use. GASTROINTESTINAL: Abdominal binder again in place. Abdomen soft, non-tender, nondistended. No rebound or guarding. Positive bowel sounds. MUSCULOSKELETAL: No cyanosis, or edema. BACK: Nontender without obvious deformity. No CVA tenderness. A/P Assessment and Plan ====05/31/16 Labs are stable. Pain improved. Still no bowel movement. Colorectal surgery has advanced to full liquid diet. Await return of bowel function. 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 Appreciate assistance. Post surgical management as per surgical service. -disContinue Gee catheter. -05/31. Pain improvement. Advanced to full liquids -Still awaiting return of bowel function //Leukocytosis-resolved on 05/30. =05/29 =hg27-->13.1 -05/30. Resolved white blood cells 9.7. -Continue to Monitor //Postoperative anemia. -Hemoglobin 10.3 ==> 9.1-->9.8-->10.3 -Continue to monitor //Acute prerenal azotemia secondary to dehydration Creatinine stable. continue IVF. Continue to monitor //Hypokalemia. -Resolved after replacement. Continue to monitor closely. //Microscopic hematuria- on UA. patient on her cycle //PPI for GI prophylaxis //DVT prophylaxis. Heparin. Otherwise as per surgical service. Discharge Planning As per surgical service. Jerome Calvillo MD May 31, 2016 19:22
[2016-05-31 20:00] VITALS: BP 106/56; PULSE 112; RESP 20; TEMP 98.7; O2SAT 95
[2016-06-01] VITALS: BP 112/64; PULSE 94; RESP 20; TEMP 98.2; O2SAT 96
[2016-06-01] MEDS: CIPROFLOXACIN 400 MG PREMIX 200 ML IV SCH (03:13)
[2016-06-01] MEDS: ACETAMINOPHEN/HYDROcodone 325 MG/5 MG TAB PO PRN ×3 (04:04→16:19)
[2016-06-01 05:37] LABS: AUTOMATED NEUTROPHIL # 5.3 TH/MM3 (1.8-7.7); BASOPHIL # 0.1 TH/MM3 (0-0.2); BASOPHIL % 1.2 % (0.0-2.0); EOSINOPHIL # 0.6 TH/MM3 (0-0.4); EOSINOPHIL % 7.3 % (0.0-4.0); HEMATOCRIT 32.6 % (35.0-46.0); HEMO FLAGS DIFF FINAL; LYMPH % 13.6 % (9.0-44.0); LYMPHOCYTE # 1.2 TH/MM3 (1.0-4.8); MEAN CELL VOLUME 77.5 FL (80.0-100.0); MEAN CORPUSCULAR HEMOGLOBIN 26.1 PG (27.0-34.0); MEAN CORPUSCULAR HGB CONC 33.7 % (32.0-36.0); MONO % 15.9 % (0.0-8.0); PLATELET COUNT 591 TH/MM3 (150-450); RED CELL DISTRIBUTION WIDTH 16.4 % (11.6-17.2); WHITE BLOOD COUNT 8.5 TH/MM3 (4.0-11.0)
[2016-06-01 06:04] LABS: BICARBONATE 28.4 MEQ/L (21.0-32.0); POTASSIUM 3.6 MEQ/L (3.5-5.1)
[2016-06-01 08:00] VITALS: BP 108/51; PULSE 108; RESP 18; TEMP 98.6; O2SAT 95
[2016-06-01] MEDS: SODIUM CHLORIDE 0.9% FLUSH 5 ML FLUSH IVF SCH (09:07)
[2016-06-01] MEDS: PANTOPRAZOLE SODIUM 40 MG VIAL IVP SCH (09:07)
[2016-06-01] MEDS: HEPARIN SODIUM - SQ 10,000 UNITS/ML VIAL SQ SCH (09:08)
[2016-06-01 12:00] VITALS: BP 118/60; PULSE 101; RESP 18; TEMP 97.4; O2SAT 96
[2016-06-01] MEDS ORDERED: HYDR-3516 PO (13:20)
[2016-06-01] MEDS ORDERED: CIPR-9 PO (15:56)
--- NOTE | 2016-06-11 13:03 | HHI.DS ---
Discharge Summary Admission Date May 24, 2016 at 04:08 Discharge Date: Jun 01, 2016 Admitting Diagnosis transverse colonic obstruction, leukocytosis (1) Obstruction of transverse colon ICD Code: K56.60 Procedures 05/27- explor-lap - ascending colectomy for volvulus Brief History - From Admission Patient is a pleasant 50-year-old female with no significant past medical history who since Saturday 4 days prior to admission has been experiencing generalized abdominal pain with spasms, constant unable to hold down any food associated with nausea last bowel movement was Saturday 4 days ago. Her usual bowel movement is like 4-5 times a week. She denies any urinary symptoms finally last night with increasing pain and generalized weakness which prompted consult to ER.. A CT of the abdomen was done which shows transverse colonic obstruction. Patient admitted for further evaluation and management. Imaging Last Impressions Upper GI Series 05/26/16 0000 Signed Impressions: Service Date/Time: Thursday, May 26, 2016 10:30 - CONCLUSION: 1. Contrast fills a normal-appearing but externally compressed stomach. Gastric emptying is normal. 2. Podiatrist Assistant view demonstrates a dilated segment of colon in the superior abdomen. Based on all of the imaging findings the appearance is very suspicious for cecal volvulus or less likely cecal bascule. Florencio Roman MD ADDENDUM: The above findings were relayed to Dr. Vital via telephone at 1:15 PM. I informed him that the findings were suspicious for cecal volvulus. Florencio Roman MD Abdomen X-Ray 05/26/16 0000 Signed Impressions: Service Date/Time: Thursday, May 26, 2016 10:33 - CONCLUSION: Persistent abnormal dilatation of the colon in the upper abdomen extending to the left upper quadrant. Based on review of all the prior imaging studies the appearance is suspicious for cecal volvulus or less likely a cecal bascule. Florencio Roman MD Abdomen/Pelvis CT 05/24/16 0150 Signed Impressions: Service Date/Time: May 02:38 - CONCLUSION: Massive dilation of the transverse colon Florencio Lewis MD Enema w/Water Soluble 05/24/16 0000 Signed Impressions: Service Date/Time: May 10:48 - CONCLUSION: Large dilated air containing structure consistent with the stomach. A nasogastric tube is present. There is a large amount of stool throughout the colon with no distinct focal abnormality. Francesco Stanton MD PE at Discharge GENERAL:awake, alert. Appears comfortable. Oriented 3. SKIN: Warm and dry. NGT tube in place EYES: No scleral icterus. No injection or drainage. NECK: Supple, trachea midline. No JVD. CARDIOVASCULAR: Regular rate and rhythm without murmurs, gallops, or rubs. RESPIRATORY: Breath sounds equal bilaterally. No accessory muscle use. GASTROINTESTINAL: abdomen- with post op dressing in place, horizontal incision lower abdominal area MUSCULOSKELETAL: No cyanosis, or edema. BACK: Nontender without obvious deformity. No CVA tenderness. Pt update on day of discharge patient says she feels well. would like to go home. Reports pain is controlled. Positive bowel movement Hospital Course CT abdomen showed massive dilation of transverse colon, also with marked leukocytosis, in the 20s. General surgery was consulted. She was treated with ciprofloxacin, with resolution of leukocytosis. NG tube placed. Patient underwent a ascending colectomy for cecal volvulus. She tolerated diet and bowel function returned on 06/01. She was discharged home. He will need follow- up with primary care, colorectal surgery. For problem-based summary for most recent progress note, please see below. ====06/01/16 Status post bowel movement. Surgery has cleared for discharge. 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 Appreciate assistance. Post surgical management as per surgical service. -disContinue Gee catheter. -05/31. Pain improvement. Advanced to full liquids -Still awaiting return of bowel function //Leukocytosis-resolved on 05/30. =05/29 =hg27-->13.1 -05/30. Resolved white blood cells 9.7. -Continue to Monitor //Postoperative anemia. -Hemoglobin 10.3 ==> 9.1-->9.8-->10.3 -Continue to monitor //Acute prerenal azotemia secondary to dehydration Creatinine stable. continue IVF. Continue to monitor //Hypokalemia. -Resolved after replacement. Continue to monitor closely. //Microscopic hematuria- on UA. patient on her cycle //PPI for GI prophylaxis //DVT prophylaxis. Heparin. Otherwise as per surgical service. Pt Condition on Discharge: Good Discharge Disposition: Discharge Home Discharge Time: <= 30 minutes Discharge Instructions DIET: Follow Instructions for: Low Fiber Diet Activities you can perform: Shower/Bath Activities to Avoid: Lifting/Bending, Driving Follow up Referrals: Colorectal Surgery - 3 Weeks with Belia Washburn MD PCP Follow-up New Medications: Ciprofloxacin (Cipro) 500 Mg Tab 500 MG PO BID Infection #10 Ref 0 TAB Hydrocodone-Acetaminophen (Hydrocodone-Acetaminophen) 5-325 mg Tab 1-2 TAB PO Q6H PRN PAIN SCALE 1 TO 10 #40 TAB Jerome Calvillo MD Jun 11, 2016 13:03
== END 2016-06-01 16:24 | disposition home or self-care (01) | DRG 330 ==
LOC: NEPE 23:30 → NEDA 05-24 04:08 → NEDH 05-24 10:10 → N07A 05-24 13:19
PROVIDERS: ADMIT Internal Medicine; ATTEND Internal Medicine
PROC: 3E0M05Z Introduction of Adhesion Barrier into Peritoneal Cavity, Open Approach (ICD-10-PCS; 2016-05-27)
PROC: 0DTK0ZZ Resection of Ascending Colon, Open Approach (ICD-10-PCS; principal; 2016-05-27 15:55)
DX: K56.2 Volvulus (principal); Q43.8 Other specified congenital malformations of intestine; E86.0 Dehydration; K58.9 Irritable bowel syndrome, unspecified; E87.6 Hypokalemia; R31.29 Other microscopic hematuria; D64.9 Anemia, unspecified; D72.829 Elevated white blood cell count, unspecified; Z87.891 Personal history of nicotine dependence
CPT/HCPCS: 74000; 74176; 74240; 74270; 76937; 80048; 80053; 81001; 83690; 84155; 85007; 85025; 85027; 88307; 93005; 94150; 96361; 96374; 96375; C1765; C9113; J0131; J0690; J0744; J1100; J1170; J1644; J2250; J2270; J2405; J2710; J3010; J3480; J7030; J7042; J7120; Q9963